=== PATIENT | female | born 2005 | race American Indian/Alaskan Native ===

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

== ENCOUNTER 2023-08-08 22:14 | Inpatient (IN) | payer MEDICAID ==
[~2023-08-08] VITALS: Ht 165.1 cm; Wt 52.8 kg
[~2023-08-08 22:14] MED LIST changes: +ARIP400S3 IM; +BROM5CAP3 PO; +LITH300C PO; -NO HOME MEDS; +OLAN20TA34 PO; -PHEN51CR24 RC
[2023-08-09 00:35] LABS: URINE AMPHETAMINE SCREEN POSITIVE (Neg); URINE BARBITUATE SCREEN NEGATIVE (Neg); URINE BENZODIAZEPINES SCREEN NEGATIVE (Neg); URINE CANNABINOID SCREEN POSITIVE (Neg); URINE COCAINE SCREEN NEGATIVE (Neg); URINE METHADONE SCREEN NEGATIVE (Neg); URINE OPIATE SCREEN NEGATIVE (Neg); URINE PHENCYCLIDINE SCREEN NEGATIVE (Neg)
[2023-08-09 01:16] LABS: URINE HCG NEGATIVE (NEG)
[2023-08-09 01:25] LABS: MEAN PLATELET VOLUME 8.6 FL (7.4-10.4); WHITE BLOOD COUNT 11.2 X10'3 (4.5-11.0)
[2023-08-09 01:27] LABS: BASOPHILS # (AUTO) 0.1 X10'3 (0-0.2); BASOPHILS % (AUTO) 0.6 % (0-1); EOSINOPHILS # (AUTO) 0.1 X10'3 (0-0.9); EOSINOPHILS % (AUTO) 0.5 % (0-6); HEMATOCRIT 36.6 % (35.0-45.0); LYMPHOCYTES # (AUTO) 2.1 X10'3 (1.1-4.8); LYMPHOCYTES % (AUTO) 19.1 % (21-51); MEAN CORPUSCULAR HEMOGLOBIN 31.4 PG (27.0-31.0); MEAN CORPUSCULAR HGB CONC 32.7 g/dL (33.0-36.5); MEAN CORPUSCULAR VOLUME 95.9 FL (78-98); MONOCYTES % (AUTO) 9.1 % (2-12); NEUTROPHILS # (AUTO) 7.9 X10'3 (1.8-7.7); NEUTROPHILS % (AUTO) 70.7 % (42-75); PLATELET COUNT 235 X10'3 (140-440); RED BLOOD COUNT 3.82 X10'6 (4.20-5.60)
[2023-08-09 01:41] LABS: ALANINE AMINOTRANSFERASE 39 U/L (12-78); ALBUMIN/GLOBULIN RATIO 1.1 (1.1-1.5); ALKALINE PHOSPHATASE 60 IU/L (20-180); ANION GAP 11 (8-16); ASPARTATE AMINO TRANSFERASE 30 U/L (10-37); BILIRUBIN,TOTAL 1.1 MG/DL (0.1-1.0); BLOOD UREA NITROGEN 28 MG/DL (7-18); BUN/CREATININE RATIO 33.7 (10.0-20.0); CALCIUM 9.2 MG/DL (8.5-10.1); CHLORIDE 100 MMOL/L (99-107); CREATININE 0.83 MG/DL (0.40-0.90); GLUCOSE 87 MG/DL (70-104); POTASSIUM 3.4 MMOL/L (3.5-5.1); SODIUM 134 MMOL/L (135-145); TOTAL CARBON DIOXIDE 22.8 MMOL/L (24-32); TOTAL PROTEIN 7.7 G/DL (6.4-8.2); eCRCL 79 ML/MIN; eGFR 88 ML/MIN
[2023-08-09 01:49] LABS: ETHANOL < 10 MG/DL (<10)
--- NOTE | 2023-08-09 02:08 | NUR ---
The patient was moved to Fast track. She is very dirty and disheveled. She is mumbling her replies and is a poor historian. She did state she is hearing voices telling her "to accept the love" She is oriented to year. She has not been taking any psychiatric medications.
[2023-08-09] MEDS ORDERED: NO HOME MEDS (02:19)
--- NOTE | 2023-08-09 02:41 | NUR ---
The patient appears to be sleeping
[2023-08-09 02:55] LABS: THYROID STIMULATING HORMONE 0.21 ulU/ml (0.34-4.50)
--- NOTE | 2023-08-09 04:18 | NUR ---
PACKET SENT TO [facility]
--- NOTE | 2023-08-09 05:08 | NUR ---
The patient appears to be sleeping
--- NOTE | 2023-08-09 06:38 | NUR ---
Pt. moved into bed 21 from fast track. Pt sitting up eating anibal crackers with milk. No acute distress noted.
--- NOTE | 2023-08-09 07:02 | NUR ---
PT REFUSED VITALS @0700. PT IS HIDING UNDER HER COVERS COMPLETELY. I GENTLY PLACED MY HAND ON HER SHOULDER TO ASK IF I COULD OBTAIN HER VITAL SIGNS AND PATEINT SAID NO AND SHOOK/ TOSSED HER WHOLE BODY AROUND ACTING OUT SO I WOULD NOT TOUCH HER. ADVISED PT THAT I WILL TRY AGAIN LATER BECAUSE WE WILL NEED TO CHECK TO MAKE SURE SHE IS HEALTHY. PT DID NOT RESPOND AND STAYED UNDER BLANKET
--- NOTE | 2023-08-09 09:27 | NUR ---
[facility] at bedside evaluating pt.
--- NOTE | 2023-08-09 09:30 | NUR ---
Hold upheld for 5150 for GD.
--- NOTE | 2023-08-09 09:41 | NUR ---
Patient currently sitting up in bed looking around the room talking to herself and crying. When I approached patient to ask if there was anything I could get her or if she wanted to talk patient states she would like "something" to clean herself up with. Patient also advised that she is sad about "her city" and then asks, "What happened to my city, to [facility]?" She goes on to say, "It never use to be like this. It is so bad out here." I advised patient that I can get her a shower cap, and other supplies so she can clean herself up. She was given the shower cap, bathing wipes, deodorant, toothbrush & paste, mouth, and hair brush. When giving pt her supplies she asks to use the bathroom so she could see herself in the mirror- I advised we do not have any and she was very hesitant then asks, "Who took the mirrors from me?" I let pt know we never had mirrors here for anyone. Pt states she will stay in her room. She is currently applying the shower cap w/ no help per her request and now will use wet wipes to clean herself up more so.
--- NOTE | 2023-08-09 10:00 | NUR ---
1:1 done at bedside, pt. tearful, making nonsensical and disorganized statements. Pt offered toiletry items and is cleaning herself up at this time. Pt. denies SI. It appears she is having VH, pt continuously looking up at the ceiling in a panic.
--- NOTE | 2023-08-09 11:03 | NUR ---
Pt. looking through a magazine talking outloud to herself. No acute distress noted.
--- NOTE | 2023-08-09 13:10 | NUR ---
Pt has been accepted to [facility], pt will be transferred at the appropriate time.
--- NOTE | 2023-08-09 13:58 | NUR ---
Pt. resting with blanket over her face. Noted rise and fall of chest.
--- NOTE | 2023-08-09 14:59 | NUR ---
Pt eating lunch, moaning loudly, "I need these braces off, Christina had them since I was 15, my parents are pieces of shit." Pt. states each bite she takes hurts.
--- NOTE | 2023-08-09 16:36 | NUR ---
Pt talking to her magazine. Pt has been talking to herself sitting on her bed.
--- NOTE | 2023-08-09 17:18 | NUR ---
Pt. sister Annie visiting at bedside.
--- NOTE | 2023-08-09 17:46 | NUR ---
ERIN - SISTER [phone]
--- NOTE | 2023-08-09 19:35 | NUR ---
The patient can be heard talking to people who are not there. She denies suicidal thoughts but stated, "diego diego! I have so many thoughts. Like a storm up there" She denies being suicidal. She has braces but has not had any care by an identification and records commander for over a year. She is having trouble eating. When asked where she has been living she replied "[place] everywhere" She denies being depressed.
--- NOTE | 2023-08-09 21:15 | NUR ---
The patient appears to be sleeping
[2023-08-09] MEDS ORDERED: loperamide 2mg capsule PO PRN (22:10)
[2023-08-09] MEDS ORDERED: acetaminophen 325mg tablet PO PRN (22:10)
[2023-08-09] MEDS ORDERED: magnesium hydroxide 30ml (MOM) UD suspension PO PRN (22:10)
[2023-08-09] MEDS ORDERED: mag hydrox/Alum hydrox/simeth 30ml oral suspension PO PRN (22:10)
[2023-08-09 22:52] VITALS: BP 109/76; PULSE 111; RESP 16; TEMP 98.9; O2SAT 98
[2023-08-09] MEDS: acetaminophen 325mg tablet PO PRN (23:15)
[2023-08-10 00:38] VITALS: RESP 16; O2SAT 97
--- NOTE | 2023-08-10 02:58 | NUR ---
Admit Note: Pt transferred from [facility] to [facility] on 5150 for [place] Disability. Pt presented to the ED with signs and symptoms of psychosis including disorganized thoughts and feeling that she lost herself. Pt is unable to report a viable plan for food, clothing and retirement. She is observed responding to internal stimuli speaking and making non-sensical or delusional statements. Pt is calm and cooperative with skin check and admission. Rash identified on left side of LE. Red and blotchy.
[2023-08-10] MEDS: acetaminophen 325mg tablet PO PRN (06:47)
[2023-08-10 07:00] VITALS: RESP 16; O2SAT 100
[2023-08-10 08:00] VITALS: BP 119/86; PULSE 106; RESP 16; TEMP 98.8; O2SAT 100
[2023-08-10 08:21] LABS: HEMOGLOBIN A1C 4.8 % (4.5-6.2)
[2023-08-10 08:30] LABS: CHOL/HDL RATIO 2.7 (0.00-4.99); CHOLESTEROL 120 MG/DL (0-200); HDL CHOLESTEROL 44 MG/DL (35-60); LDL CHOLESTEROL 57 MG/DL (50-100); TRIGLYCERIDES 53 MG/DL (20-135)
[2023-08-10] MEDS: nicotine 21mg patch - 24 hr TD SCH (08:59)
--- NOTE | 2023-08-10 09:51 | NUR ---
Malnutrition Consult: Pt admit DX acute psychosis s/p meth and cannabis use per EMR. BMI 16.9 via 46.1kg standing scaled wt this admit and pt reports 14-23 pounds wt loss per RN Malnutrition Screen. Pt prior scaled wt hx 01/02/22 47.4kg chair scale ER visit in EMR stable wt hx. RD d/w RN pt nutrition status, RN confirms pt small stature but appears appropriate. Pt likely maintains underweight status at baseline and given normal strength, no edema/wounds, and PO 75-100% first two regular diet meals does not meet malnutrition criteria at this time. Will monitor for further malnutrition criteria and nutrition intervention needs this admit. Addendum: 08/10/23 at [address] Amended: Links added.
[2023-08-10] MEDS ORDERED: FLU VACC QS2023-24(6MOS UP)/PF 60 MCG/0.5 ML SYRINGE IM ONE (10:00)
--- NOTE | 2023-08-10 11:28 | NUR ---
Pt. c/o generalized tooth pain r/t her braces, this was endorsed to Dr. Hernandez and received an order for Anbesol. Will continue to monitor pt. closely.
[2023-08-10] MEDS ORDERED: benzocaine (Anbesol) 12ml bottle MM PRN (11:30)
[2023-08-10] MEDS ORDERED: magnesium 4gm in 100ml NS 100 ML IV PRN (17:10)
[2023-08-10] MEDS ORDERED: potassium Cl 20 mEq SR tablet PO PRN ×2 (17:10)
[2023-08-10] MEDS ORDERED: magnesium 2GM in 50ml NS 50 ML IV PRN (17:10)
[2023-08-10] MEDS ORDERED: potassium Cl 40MEQ/1/2NS 520ml 520 ML IV PRN (17:10)
[2023-08-10] MEDS ORDERED: magnesium Cl slow-release 64mg tablet PO PRN (17:10)
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
[2023-08-10 19:00] VITALS: RESP 18; O2SAT 97
[2023-08-10 19:34] VITALS: BP 122/85; PULSE 97; RESP 18; TEMP 98.8; O2SAT 100
[2023-08-10] MEDS ORDERED: K and/or MAG REPLACEMENT MC SCH (20:00)
--- NOTE | 2023-08-11 03:31 | NUR ---
Nursing Progress Note: Problem: Pt. was transferred from the ER to [facility] on 5150 for Grave Disability. Pt presented to the ED with signs and symptoms of psychosis including disorganized thoughts and feeling that she lost herself. Pt is unable to report a viable plan for food, clothing and retirement. She is observed responding to internal stimuli speaking and making non-sensical or delusional statements. Interventions : Introduced self and established rapport, maintained a safe and supportive environment, attempted to orient to reality, provided clear and simple instructions, monitored behaviors and provided intervention as needed, and maintained Q 15min safety checks. Response: This nurse resumed care for patient at 1830. Patient observed using headphones and wandering halls. During 1:1, patient denied all symptoms but pain. Patient is c/o tooth pain, she states she can hardly eat with the pain. Patient receiving Tylenol to aid with the tooth pain previous shift. During med pass patient got angry because they have me as allergic to bananas, caffeine, and lactose intolerant. She continues with why are they doing this to me? Im leaving here as soon as I can, I need to be around people who care about me like my man. This nurse asked patient if she was allergic to these things and she said no. Patient was administered potassium 20 MEQ, her lab was 3.4. Patient received shower this evening. Patient participated in HS snack. Patient currently in bed with eyes closed. No obvious issues to note. Plan: Pt. requires interruption of current crisis, medication adjustments, and a safe and supportive environment.
[2023-08-11 07:00] VITALS: RESP 16; O2SAT 99
[2023-08-11 08:00] VITALS: BP 132/88; PULSE 110; RESP 16; TEMP 98.4; O2SAT 99
[2023-08-11] MEDS: nicotine 21mg patch - 24 hr TD SCH (08:23)
[2023-08-11 11:49] LABS: FREE T4 (FREE THYROXINE) 1.19 NG/DL (0.73-1.40); MAGNESIUM 2.1 MG/DL (1.5-2.4)
--- NOTE | 2023-08-11 14:06 | NUR ---
Nursing Progress Note: Problem : Pt. was transferred from the ER to [facility] on 5150 for Grave Disability. Pt presented to the ED with signs and symptoms of psychosis including disorganized thoughts and feeling that she lost herself. Pt is unable to report a viable plan for food, clothing and fdc. She is observed responding to internal stimuli speaking and making non-sensical or delusional statements. Interventions : 1:1 assessment, establishment of rapport, therapeutic communication, active listening, medication administration/education/monitoring, behavior monitoring and intervention as needed; provided distraction, direction, positive reinforcement, and maintained Q 15min safety checks. Response : Pt showered before breakfast. Pt denied dental pain today. Pt had no morning medications except a nicotine patch. When asked pt's birthday, she gave it and then added that it's the same as Demarcus Zambrano's birthday and it is. Pt was observed responding to internal stimuli in the dining room during breakfast. Pt was rapidly talking to herself, gesturing, and moving her body in odd ways. Pt is restless, she wanders the unit and listens to radio headphones. Pt was observed arranging and then rearranging the items on her night stand repeatedly. Also observed pt in the community/dining room arranging and then rearranging the art supplies. Pt's K today was 4.0 and her mag was 2.1 WNL. Potassium/mag protocol was D/c'd. Pt's Free T4 was 1.19 WNL. Plan : Pt. requires interruption of current crisis, medication adjustments, and a safe and supportive environment. Addendum: 08/11/23 at 1452 by Stephanie Davidson RN (Lee) IFEOMA Katherine brought in some braces wax for the pt. She was provided with a strip and the rest was placed in her locker.
[2023-08-11 19:03] VITALS: BP 129/83; PULSE 102; RESP 18; TEMP 97.9; O2SAT 97
[2023-08-11 19:47] VITALS: RESP 18; O2SAT 97
--- NOTE | 2023-08-11 23:21 | NUR ---
Nursing Progress Note: Problem : Pt. was transferred from the ER to [facility] on 5150 for Grave Disability. Pt presented to the ED with signs and symptoms of psychosis including disorganized thoughts and feeling that she lost herself. Pt is unable to report a viable plan for food, clothing and intermediate. She is observed responding to internal stimuli speaking and making non-sensical or delusional statements. Interventions : 1:1 assessment, establishment of rapport, therapeutic communication, active listening, medication administration/education/monitoring, behavior monitoring and intervention as needed; provided distraction, direction, positive reinforcement, and maintained Q 15min safety checks. Response : Patient pleasant and cooperative with care; no scheduled meds this shift. Patient provided minimal responses during assessment; denied SI, HI, A/VH and added she was "brought in by mistake." Patient was social with peers and participated in HS snack. She was observed reading prior to bed; she randomly popped up pacing the camacho quickly and laid back down. She is observed sleeping and does not appear to be having difficulty. Plan : Pt. requires interruption of current crisis, medication adjustments, and a safe and supportive environment.
--- NOTE | 2023-08-12 06:30 | NUR ---
Psychotic Episode: Pt. awoke and began yelling out in a tormented manner stating, "I don't want to think, I want to be a monk!" This jingle writer attempted to provide active listening and positive encouragement to pt., however she was resistant. This jingle writer also encouraged pt. to quiet her voice as others were still seeping, pt. proceeded to put headphones on, rip off her name band, and yelled out, "I don't need sleep!" She then began pacing the hallway rapidly in a restless manner, making disorganized utterances at times, and flailing her body rapidly in a bizarre and erratic manner. She did not respond to redirection, however behaviors did appear to increase when others were present, and there is possibly an attention-seeking element to these behaviors. Pt. also appears to be responding aloud to internal stimuli as evidenced by whispering agitatedly in a non-sense manner and staring intently at objects that are not present. Pt. is labile, crying at intervals and then becoming agitated. She is observed to be approaching pictures and random signs in the hallway and praying or attempting to communicate with them in some way. Pt. cries out, "It's scary, I don't want the children to be afraid!" She appears able to be comforted by her peers, and is later observed to be interacting appropriately with them, however does speak in a loud voice at times requiring redirection with effectiveness.
[2023-08-12 07:00] VITALS: RESP 16; O2SAT 99
[2023-08-12 08:00] VITALS: BP 129/77; PULSE 100; RESP 16; O2SAT 99
[2023-08-12] MEDS: nicotine 21mg patch - 24 hr TD SCH (08:57)
--- NOTE | 2023-08-12 10:52 | NUR ---
Initial: Pt admit for acute psychosis. Currently on a regular diet and eating well, documented with average 94% PO intake of all meals since admit meeting estimated nutrient needs. LBM 08/11 per EMR. No nutrition intervention warranted at this time. Will continue to follow and make recommendations as appropriate. Recommendations: 1) Continue regular diet 2) Bowel care PRN 3) Weekly scaled weights Addendum: 08/12/23 at [address] Amended: Links added.
--- NOTE | 2023-08-12 13:53 | NUR ---
CASE MANAGEMENT Put a referral in to the [facility]. They may be able to come out tomorrow to interview Pt. They will confirm later today. Lashawn Woods LCSW
--- NOTE | 2023-08-12 15:57 | NUR ---
Nursing progress note: Problem: Pt. was transferred from the ER to [facility] on 5150 for Grave Disability. Pt presented to the ED with signs and symptoms of psychosis including disorganized thoughts and feeling that she lost herself. Pt is unable to report a viable plan for food, clothing and alf. She is observed responding to internal stimuli speaking and making nonsensical or delusional statements. Response: Assumed care of pt. at 1100. She was up on the unit engaging with peers and listening to music. Later went to group and was watching T.V. Asked her how she is feeling she states, great, always. Asked her if she had a discharge plan, she said, Suzie ([facility]). Asked her if she has been interviewed for the CR, she said, Not yet, 1-2 days. Asked if she has any other DC plan incase [facility] does not work out she states, No, the referral was sent. Asked about HI/SI, she states, No never. Asked her about A/V/H, she states, No, never. While watching a movie she is talking to herself stating, There you go again, I told you not to be dumb. Bx suggests that AH are present. She is very concrete and matter of fact when talking with her. She is minimally communicative but friendly on approach. -Appearance: casually groomed in green scrubs. -Eye contact: good -Mood: calm -Affect: constricted -Speech: WNL but minimal -Thought Process: concrete matter of fact -Thought content: focused on going to [facility] -A/V/H: Bx suggests that AH may be present. -SI/HI: denies -ADLs: independent -Insight: poor -Judgement: poor Plan: Cont. to require a safe and structured environment for further stabilization. Current symptom impair pt.s ability to formulate a safe discharge plan or state how she will provide for herself outside of the facility. If discharged at this time she could be a risk for safety and re-hospitalization.
[2023-08-12 19:25] VITALS: BP_SYST 100; PULSE 93; RESP 16; TEMP 98.7; O2SAT 100
[2023-08-12 19:31] VITALS: RESP 16
[2023-08-12] MEDS: OLANZapine 2.5MG tablet PO SCH ×2 (20:28→20:32)
--- NOTE | 2023-08-12 23:19 | NUR ---
Nursing Progress Note: The patient was up on the unit the entire evening. At Change of shift she was pacing up and down with the head phones on but she did agree to go to her room for the evening assessment. The patient has very little to no insight into her illness. She is aware that there is a plan for her to go to the [facility] but she reports that she is only going to be there temporarily. She stated that after the 30 day [facility] program she is going to be with her significant other, Vitaliy Toussaint and she will be adopting his son. 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 Her mood was elevated but also labile. She denied hearing voices but she was very loud in the patient dining room while other patient's were trying to watch TV. She was gesturing and talking to someone who was not there. She was offered the Zyprexa and she became very indignant and adamantly refused the medication or need for any medications.
[2023-08-13 07:00] VITALS: RESP 16; O2SAT 100
[2023-08-13 07:31] VITALS: BP 116/65; PULSE 99; RESP 16; TEMP 97.6; O2SAT 100
[2023-08-13] MEDS: nicotine 21mg patch - 24 hr TD SCH (08:25)
--- NOTE | 2023-08-13 16:19 | NUR ---
Nursing Progress Note: Problem : Pt. was transferred from the ER to [facility] on 5150 for Grave Disability. Pt presented to the ED with signs and symptoms of psychosis including disorganized thoughts and feeling that she lost herself. Pt is unable to report a viable plan for food, clothing and custodial. She is observed responding to internal stimuli speaking and making non-sensical or delusional statements. Interventions : Maintained a safe and supportive environment, attempted to orient to reality, provided clear and simple instructions, monitored behaviors and provided intervention as needed, provided active listening and positive encouragement, and maintained Q 15min safety checks. Response : Pt. awoke early and again was observed to be pacing in the hallway making bizarre body movements and responding aloud to internal stimuli. Pt. yelled out, "Leave me alone spirit!" This news writer attempted to reorient pt. and questioned her regarding any needs, however she was again resistant and became agitated walking away yelling out, "Never!" Pt. continued to pace the hallway in a restless manner, making disorganized utterances at times, and flailing her body in a bizarre and erratic manner as she had done previously. She approached others making disorganized and tangental statements, "Police had to come to my house last night," she holds up a deck of cards, "Here's my baby right here!" Pt. appears to be particularly preoccupied with the hallway mirror this morning and is observed to be talking to it, pointing, and laughing.Pt. again is resistant to redirection from staff, however her behaviors do consistently appear to increase when others are present suggesting the possibly of an attention-seeking element. Again, pt. appeared to be able to able to pull herself out of her psychosis and was a short time later observed to be interacting appropriately with her peers. However, she continues to make disorganized statements and speak in a very loud voice at times requiring redirection. Pt. attended Group this shift. Pt. remained up interacting appropriately with others during the shift, however remains disorganized and is labile at intervals. At approximately 1600, pt. became agitated and was yelling aloud at internal stimuli in the Group Room. She was redirected back to her room, however continued to be agitated. Pt. yelled out, "Leave me alone you old hag!" When questioned by staff regarding who she is talking to, pt. stated, "My [id number]!" She requested to take a shower, "Before I freak out!" Will continue to monitor closely. Plan : Pt. requires interruption of current crisis, medication adjustments, and a safe and supportive environment. Addendum: 08/13/23 at 1751 by Joycelyn Muhammad RN Pt. refused to turn off the water and come out of the shower r/t responding to internal stimuli. She verbalized seeing and talking to her "[id number]." Pt. remained agitated and yelled out, "Leave me alone you f...ing old hag! I don't even know your son!" Staff attempted to re-orient pt. to reality without success. Pt. required intervention from staff in to get her out of the shower and help her to dress as she was unable to do so independently. Pt. also had torn up a book and spread the pages from it out all over the shower floor. She appears to be unable to independently care for herself. Pt. was finally redirected back to her room, will continue to monitor closely.
[2023-08-13 19:00] VITALS: BP 116/80; PULSE 96; RESP 14; TEMP 98.5; O2SAT 100; O2SAT 96
[2023-08-13] MEDS: OLANZapine 2.5MG tablet PO SCH (20:21)
[2023-08-13] MEDS ORDERED: OLANZapine **IM** 10 mg inj. IM ONE (20:47)
[2023-08-13] MEDS ORDERED: diphenhydrAMINE 50 mg/ml inj ONE (20:48)
--- NOTE | 2023-08-13 23:37 | NUR ---
Nursing Progress Note: Problem : Pt. was transferred from the ER to [facility] on 5150 for Grave Disability. Pt presented to the ED with signs and symptoms of psychosis including disorganized thoughts and feeling that she lost herself. Pt is unable to report a viable plan for food, clothing and assisted. She is observed responding to internal stimuli speaking and making non-sensical or delusional statements. Interventions: Attempted to engage with the patient from the beginning of the shift in an attempt to de-escalate her increasing agitation and lability. Discussed the importance of taking medications to be successful at the [facility] She was made aware of what was ordered for her. When that completely and utterly failed numerous staff attempted to redirect her from disruptive behaviors. Discussed plan of care with the unit staff and she was under increased observation. When she was seen screaming in the dining room punching chairs and standing up on the chairs security was called. The toy trains and accessories salesperson provider was made aware of the behaviors and orders were given for IM medications for her own safety. IM medications given and the patient had to be briefly placed in the quiet room but then immediately in restraints as she was pounding very hard on the class of the door. Response: The patient was found in the dining room crying, then yelling and swearing and talking to someone who was not there. She did agree to go to her room for one to one but she was very easily agitated. She adamantly refused the medications that were ordered for her. She has no insight what so ever and she is not able to verbalize a realistic plan for food, assisted or clothing. She is responding to voices who she believes in [facility] and she plans to go to [place] to be with him. She claims that he is her significant other. She is very tangential and delusional. She yelled, "I am not taking any medications that I cant smoke marijuana with!" She then began making bizarre statements about her parents, "My parents are serial killers!! Faceless killers! They're running from the FBI and I have to round them up!!!" Plan: The patient is currently on a voluntary hold but she is not engaged in treatment and is disruptive to the milieu. She is refusing medication. She lacks capacity to make sound decisions for discharge or for her care. Continue hospitalization.
--- NOTE | 2023-08-14 04:03 | NUR ---
PHYSICAL RESTRAINT NOTE: At [facility] client was in the main dinning room responding to internal stimuli; talking rapidly, gesturing, and being disruptive. Mehnaz Irving RN attempted to calm and verbally de-escalate client. Attempts to re-direct client to a quieter room, with less stimulation, failed. Oral medications for anxiety/agitation were offered, but client refused. At 20:45 clients agitation increased when client stood up on the chair, began beating the chair with her fist, jumping up and down on the chair, and yelling. DEDE Altamirano was notified and orders for emergency medications (50 mg Diphenhydramine IM and 10 mg Zyprexa IM) were obtained. Security was notified and two guards responded to the call. Mehnaz Irving RN, Mundo Wahl CNA, Kendra Bernal LVN, Sania Estrada LVN and Wendy Harding escorted client to the seclusion room and applied restraints. John Forte RN was notified. Client fell asleep and was released from restraints at 21:13. Addendum: 08/14/23 at 2249 by Sima Means RN TIME: 20:45 Clients agitation increased. Jumping on chair, striking chair with fists. 20:53 Client placed in Seclusion Room. Began pounding on window with fists. PRN meds administered. 20:[address] in 4 point restraints. 21:13 Four point restraints removed. Released from Seclusion.
--- NOTE | 2023-08-14 04:37 | NUR ---
S/R Initiation (Y=yes; N=no) Date Seclusion/Behavioral Restraint Episode Began: 08/13/2023 Time Seclusion/Behavioral Restraint Episode Began: 20:53 Type of Restraint(Document Y for the type utilized) mechanical-4 point: Yes physical hold: Yes seclusion: Yes Behavior Necessitating Behavioral Restraint/Seclusion(Document Y for DTS and/or DTO). Danger to self: Yes Danger to others: Yes Alternatives Attempted(Document Y for the alternatives attempted). Decrease stimuli: Yes Diversional activities: No Verbal limit setting: Yes Medication: Yes Reality orientation: Yes Show of support: Yes Problem solving: No De-escalation: Yes Food and fluids: No Increased observation: Yes Other:[] Behavioral Description(narrative of circumstances that led to use of S/R): Yelling, striking chairs with fists, jumping up and down on chair, punching window with fists. Medications Given:(medication name/time/route/location/effectiveness): 10 mg Zyprexa IM, 50 mg Diphenhydramine IM Patient Injuries Y/N(if Y,describe/actions taken/outcome): No Notifications. Provider/Guardian/conservator/Family/other/No one identified by patient to be notified: DEDE Altamirano Education. Education Topic for Seclusion and Behavioral Restraint(must educate each element and Document Y) Hospital policy: Written notification on admission. Reason for seclusion or restraint: Agitation Bx necessary for release: Contract for safety. Calm. Monitoring of patient/behavior: LOS once restraints applied. Individual Taught(Document Y for individuals taught). Patient: Unable at time of incidence. Family: N/A Significant other: N/A Barriers to Learning(Document Y for the barrier(s)identified). None Identified: N/A Emotional Barriers: Yes Inability to Read: No Yarsanism Practices: N/A Cognitive Impairment: N/A Lack of Motivation: N/A Language Barriers: N/A Hearing: N/A Cultural Practice: N/A Other:[] Teaching Method(Document Y for the method(s)utilized). Verbal: N/A Audio/Visual: No Handouts: No Demonstration: No Other:[] Teaching Evaluation(Document Y for which response is applicable to patient). Verbalizes Understanding: N/A Needs Further Teaching: Yes Returns Demonstration: N/A Needs Reinforcement: Yes Needs Practice: N/A Needs Supervision: N/A
--- NOTE | 2023-08-14 04:46 | NUR ---
S/R Discontinuation (Y=yes; N=no) Criteria for Release from Seclusion/Behavioral Restraint. Yes Contracts for Safety: Fell asleep No Longer Danger to Others: No, not a DTO. No Longer Danger to Self: No, not a DTS. Behavioral Description(narrative): Client was standing on chair, jumping up and down on chair, yelling, punching chair, striking seclusion room window Initiation Date of Seclusion/Behavioral Restraint Episode: 08/13/2023 Initiation Time of Seclusion/Behavioral Restraint Episode: 20:53 Discontinuation Date of Seclusion/Behavioral Restraint Episode: 08/13/2023 Discontinuation Time of Seclusion/Behavioral Restraint Episode: 21:13
--- NOTE | 2023-08-14 04:50 | NUR ---
S/R Debrief (Y=yes; N=no) Date of Seclusion/Behavioral Restraint Episode: 08/13/2023 Time of Seclusion/Behavioral Restraint Episode: 20:53 Date of Patient Debrief: Client fell asleep before debrief. Time of Patient Debrief: N/A Patient Attended Debrief (if N then comment why) No Debrief Info in patient words if possible (not necessary if pt. did not attend debrief) What led to the episode: Client psychosis How could patient have handled things differently: Client unable to manage behavior. How could staff have handled things differently: Staff was appropriate and used all tools available. Patient Perception of Episode: N/A due to psychosis. Physical Well-Being- Yes Intact: Yes Altered:[] Comment if altered:[] Psychological/Emotional Comfort-(Y/N) Intact: No Altered: Yes Comment if altered: Client noncompliant with meds. Right to Privacy- (Y/N) Intact: Yes Altered: No Comment if altered:[] Trauma Experienced- No Intact: Altered:[] Comment if altered:[]
[2023-08-14 07:00] VITALS: RESP 16
[2023-08-14] MEDS: nicotine 21mg patch - 24 hr TD SCH (07:57)
[2023-08-14 08:00] VITALS: RESP 14
--- NOTE | 2023-08-14 18:06 | NUR ---
Nursing Progress Note: Teresa Problem : Pt. was transferred from the ER to [facility] on 5150 for Grave Disability. Pt presented to the ED with signs and symptoms of psychosis including disorganized thoughts and feeling that she lost herself. Pt is unable to report a viable plan for food, clothing and halfway. She is observed responding to internal stimuli speaking and making bizarre or delusional statements. Interventions : Maintained a safe and supportive environment, attempted to orient to reality, provided clear and simple instructions, monitored behaviors and provided intervention as needed, provided active listening and positive encouragement, and maintained Q 15min safety checks. Response : Received Pt in seclusion room with door unlocked and sleeping w/o distress at the beginning of this shift. Pt woke and returned to her room and showered this morning. Pt walked halls listening to music and dancing at times. She received her AM Morris. Patch w/o issue. Pt mood elevated at times. She appeared to enjoy playing cards and watching TV with others and was hyper verbal at times mixed with grandiose statements. Pt labile in afternoon. She became agitated in afternoon about wanting to leave and not waiting anymore for the [facility] to come get her. Pt was given phone number to her sister and called her and yelled at her. Pt responded to calm verbal intervention and was able to calm by self. Plan : Pt. requires interruption of current crisis, medication adjustments, and a safe and supportive environment.
[2023-08-14 19:00] VITALS: RESP 14; O2SAT 97
[2023-08-14] MEDS: OLANZapine 2.5MG tablet PO SCH (20:21)
[2023-08-14 20:49] VITALS: BP 119/83; PULSE 121; RESP 14; TEMP 98.5; O2SAT 97
--- NOTE | 2023-08-15 03:35 | NUR ---
Nursing Progress Note: Problem : Pt. was transferred from the ER to [facility] on 5150 for Grave Disability. Pt presented to the ED with signs and symptoms of psychosis including disorganized thoughts and feeling that she lost herself. Pt is unable to report a viable plan for food, clothing and chcf. She is observed responding to internal stimuli speaking and making bizarre or delusional statements. Interventions: Maintained a safe and supportive environment, attempted to orient to reality, provided clear and simple instructions, monitored behaviors and provided intervention as needed, provided active listening and positive encouragement, and maintained Q 15min safety checks. Response: Pt sitting in group room coloring at start of shift. Her face is decorated with stars other symbols drawn on with marking pens. She also outlined her lips and other features with black marker. She was irritable with attempt at conversation and suddenly yelled out is this football game almost over. Several of the male pts responded to her calmly telling her this is a lot of time left. Pt was satisfied and went back to coloring. Pt was cooperative with med pass, took HS Zyprexa refused to remove Nicotine patch I like nightmares. Observed walking in camacho with another female pt, both making bizarre synchronized arm gestures. Plan : Pt. requires interruption of current crisis, medication adjustments, and a safe and supportive environment.
[2023-08-15 07:00] VITALS: RESP 18; O2SAT 100
[2023-08-15 08:00] VITALS: BP 133/90; PULSE 106; RESP 18; TEMP 97.9; O2SAT 100
[2023-08-15] MEDS: nicotine 21mg patch - 24 hr TD SCH (08:23)
--- NOTE | 2023-08-15 14:11 | NUR ---
Nursing Progress Note: Problem : Pt. was transferred from the ER to [facility] on 5150 for Grave Disability. Pt presented to the ED with signs and symptoms of psychosis including disorganized thoughts and feeling that she lost herself. Pt is unable to report a viable plan for food, clothing and skilled nursing. She is observed responding to internal stimuli speaking and making nonsensical or delusional statements. Interventions : 1:1 assessment, establishment of rapport, therapeutic communication, active listening, medication administration/education/monitoring, behavior monitoring and intervention as needed; provided distraction, redirection, positive reinforcement, and maintained Q 15min safety checks. Response : Pt was up for breakfast and cooperative with her nicotine patch. Pt forgot that she still had a patch on from last night. Pt is restless,hyperverbal , and disorganized at times. Pt stated, "I had the best dream...first video consul ever made, all the kids were going raulito raulito over it!" Pt has been drawing on her face with what appeared to be black marker. Pt showered. Later observed pt with thick white stuff all over her face, it appeared to be a toothpaste mask. head piece assembler confirmed that she had asked for some toothpaste earlier. Pt later washed it off. Pt hung out in the rec room socializing with peers and watching TV for awhile. Pt denied SI/HI/AH/VH. Plan : Pt. requires interruption of current crisis, medication adjustments, and a safe and supportive environment.
[2023-08-15 19:00] VITALS: RESP 18; O2SAT 98
[2023-08-15 20:00] VITALS: BP 123/80; PULSE 103; RESP 18; TEMP 97; O2SAT 98
[2023-08-15] MEDS: OLANZapine 2.5MG tablet PO SCH (20:07)
--- NOTE | 2023-08-16 04:06 | NUR ---
Nursing Progress Note: Problem: Pt. was transferred from the ER to [facility] on 5150 for Grave Disability. Pt presented to the ED with signs and symptoms of psychosis including disorganized thoughts and feeling that she lost herself. Pt is unable to report a viable plan for food, clothing and chcf. She is observed responding to internal stimuli speaking and making nonsensical or delusional statements. Interventions : 1:1 assessment, establishment of rapport, therapeutic communication, active listening, medication administration/education/monitoring, behavior monitoring and intervention as needed; provided distraction, redirection, positive reinforcement, and maintained Q 15min safety checks. Response: Pt received in day room where she was interacting with other peers. Pt appears to have painted her face with toothpaste and markers. Pt is cooperative with 1:1. Pt denies SI/HI/AH/VH. Pt was visible on unit. Interacting appropriately with staff and peers. Pt is medication compliant and took no PRNs. Pt did shower and took off her nicotine patch. Pt washed all the toothpaste and markers off in shower. Pt then went to bed and is lying with her blanket covering her face/head. Monitor for safety. Plan: Pt. requires interruption of current crisis, medication adjustments, and a safe and supportive environment.
[2023-08-16 07:00] VITALS: RESP 18; O2SAT 96
[2023-08-16 07:25] VITALS: BP 119/80; PULSE 106; RESP 18; TEMP 98; O2SAT 97
[2023-08-16] MEDS: nicotine 21mg patch - 24 hr TD SCH (08:00)
[2023-08-16] MEDS: LORazepam 1 MG tablet PO PRN (14:24)
--- NOTE | 2023-08-16 17:00 | NUR ---
Nursing Progress Note: Teresa Problem : Pt. 5150 for Grave Disability. Pt presented to the ED with signs and symptoms of psychosis including disorganized thoughts and feeling that she lost herself. Pt is unable to report a viable plan for food, clothing and nursing home. She is observed responding to internal stimuli speaking and making nonsensical or delusional statements. [address] Interventions : 1:1 assessment, establishment of rapport, therapeutic communication, active listening, medication administration/education/monitoring, behavior monitoring and intervention as needed; provided distraction, redirection, positive reinforcement, and maintained Q 15min safety checks. Response : Pt. received awake and dancing in the camacho, she presents as labile and crying on the camacho floor. Pt. later yelling out making delusional statements; provider notified. Pt. met with advocate and attended her hearing, shortly after she could be heard yelling, and was found to be labile and yelling at the provider; PRN Ativan administered with good results. Pt. spent time with cohorts today, often dancing wildly in the camacho, she presents as irritable and internally preoccupied. She denies SI, HI and endorses AH stating I love them, its my we need my she also endorses VH stating I see them with my third eye, the government put fluoride in there Pt. presents with poor fair hygiene, poorly groomed, and is wearing scrubs. Plan : Pt. requires interruption of current crisis, medication adjustments, and a safe and supportive environment.
[2023-08-16 19:00] VITALS: RESP 16; O2SAT 98
[2023-08-16 19:35] VITALS: BP 107/58; PULSE 84; RESP 16; TEMP 98.4; O2SAT 98
[2023-08-16] MEDS: olanzapine 10mg tablet PO SCH (21:00)
[2023-08-17] MEDS ORDERED: LORazepam 2 mg/ml vial ONE (00:13)
--- NOTE | 2023-08-17 00:29 | NUR ---
S/R Initiation (Y=yes; N=no)Y Date Seclusion/Behavioral Restraint Episode Began: 08/17/23 Time Seclusion/Behavioral Restraint Episode Began: 0015 Type of Restraint(Document Y for the type utilized)na mechanical-4 point:na physical hold: escort hold seclusion: y Behavior Necessitating Behavioral Restraint/Seclusion(Document Y for DTS and/or DTO). y Danger to self: The patient was highly manic. refusing redirection and PRN medications began jumping on her bed Danger to others: na Alternatives Attempted(Document Y for the alternatives attempted) Y Decrease stimuli: Y Diversional activities: Y Verbal limit setting:Y Medication:Y Reality orientation: Y Show of support:Y Problem solving: Y De-escalation: Y Food and fluids: water offered Increased observation: Y Other:[] Behavioral Description(narrative of circumstances that led to use of S/R): The patient dancing around in the hallway. Held her foot up to the exit door as if she was going to kick it and then went in to her room and began putting toothpaste on her face. She then began jumping up and down on the bed and absolutely refused to stop. She was attempting to goad security into a physical confrontation. She was fairly cooperative with ambulating to the observation room and with staff on either side of her. She then sat on the bed and when told she was getting some IM ativan she put her sleeve up for staff to administer the injection. Medications Given:(medication name/time/route/location/effectiveness): Ativan IM2mg Patient Injuries Y/N(if Y,describe/actions taken/outcome): N Notifications. Provider/Guardian/conservator/Family/other/No one identified by patient to be notified: Keon Redd PA, John Forte RN media director Education Topic for Seclusion and Behavioral Restraint(must educate each element and Document Y) Hospital policy:y Reason for seclusion or restraint:y Bx necessary for release:y Monitoring of patient/behavior:y Individual Taught(Document Y for individuals taught). Patient:y Family:n Significant other: na Barriers to Learning(Document Y for the barrier(s)identified). Y None Identified: NA Emotional Barriers: acute mk Inability to Read: NA Adventist Practices: NA Cognitive Impairment: Y Lack of Motivation: Y Language Barriers: N Hearing: N Cultural Practice: N Other: N Teaching Method(Document Y for the method(s)utilized). Verbal: Y Audio/Visual: N Handouts: N Demonstration: N Other: NA Teaching Evaluation(Document Y for which response is applicable to patient). Verbalizes Understanding: N Needs Further Teaching: Y Returns Demonstration: N Needs Reinforcement:Y Needs Practice: NA Needs Supervision: Y
--- NOTE | 2023-08-17 00:43 | NUR ---
MH S/R Debrief (Y=yes; N=no) Date of Seclusion/Behavioral Restraint Episode: 08/17/23 Time of Seclusion/Behavioral Restraint Episode: 14 Date of Patient Debrief: NA Time of Patient Debrief: NA Patient Attended Debrief (if N then comment why) N patient sleeping after IM ativan Debrief Info in patient words if possible (not necessary if pt. did not attend debrief) What led to the episode: Dayna and delusions How could patient have handled things differently: by taking the medications PO that were offered How could staff have handled things differently: NA Patient Perception of Episode: Patient has no insight 2nd to delusions and manic symptoms Physical Well-Being-(Y/N)Y Intact: Y Altered:Y Comment if altered: Manic, delusional, psychotic Psychological/Emotional Comfort-(Y/N) Intact:N Altered:Y Comment if altered: Manic Right to Privacy- (Y/N) Intact:y Altered: N Comment if altered:[] Trauma Experienced- (Y/N) Intact:[]Y Altered:[]N Comment if altered:[]
--- NOTE | 2023-08-17 01:02 | NUR ---
S/R Discontinuation (Y=yes; N=no) Criteria for Release from Seclusion/Behavioral Restraint.(Y/N)Y Contracts for Safety: na No Longer Danger to Others:na No Longer Danger to Self: y Behavioral Description(narrative): patient sleeping Initiation Date of Seclusion/Behavioral Restraint Episode: 08/17/23 Initiation Time of Seclusion/Behavioral Restraint Episode: 08/17/23 Discontinuation Date of Seclusion/Behavioral Restraint Episode: 08/17/23 Discontinuation Time of Seclusion/Behavioral Restraint Episode: 99
--- NOTE | 2023-08-17 02:13 | NUR ---
Nursing Progress Note: Teresa Problem: Pt. 5150 for Grave Disability. Pt presented to the ED with signs and symptoms of psychosis including disorganized thoughts and feeling that she lost herself. Pt is unable to report a viable plan for food, clothing and senior living. She is observed responding to internal stimuli speaking and making nonsensical or delusional statements. [address]. Interventions : 1:1 assessment, establishment of rapport, therapeutic communication, active listening, medication administration/education/monitoring, behavior monitoring and intervention as needed; provided distraction, redirection, positive reinforcement, and maintained Q 15min safety checks. Response: Pt received in her bed. Pt is sleeping with blanket covering her head. Pt allowed VS to be taken but when verse writer went in to pass medication pt. didnt want to wake up. Senior Clinical Research Scientist tried multiple times, prompting pt. to wake up for her meds. Pt did move her legs up and down making unusual noises. Pt is wearing headphones. Senior Clinical Research Scientist went back about an hour later and pt. still wont wake up for her Zyprexa. Senior Clinical Research Scientist heard her say, DEDE Hutchison informed of refusal. Unable to assess pt., continue to monitor for safety. 0015 pt. started acting out and was escorted to the seclusion room. Seclusion ended at 0100. See note below for R/S. Plan: Pt. requires interruption of current crisis, medication adjustments, and a safe and supportive environment. Addendum: 08/17/23 at 0556 by Nicole Kaye RN Pt got up and left the observation room about 0650. Pt is wobbly and making non sensical statements. "I have blood in my stool. Is that ffrom cancer. My grandaddy had it." Pt started to dance some in the hallway and was redirected back to her room.
[2023-08-17 07:00] VITALS: RESP 14; O2SAT 97
[2023-08-17 07:32] VITALS: BP 116/67; PULSE 100; RESP 14; TEMP 98.6; O2SAT 97
[2023-08-17] MEDS: nicotine 21mg patch - 24 hr TD SCH (08:21)
--- NOTE | 2023-08-17 17:12 | NUR ---
Nursing Progress Note: Teresa Problem : Pt. was transferred from the ER to [facility] on 5150 for Grave Disability. Pt presented to the ED with signs and symptoms of psychosis including disorganized thoughts and feeling that she lost herself. Pt is unable to report a viable plan for food, clothing and halfway. She is observed responding to internal stimuli speaking and making bizarre or delusional statements. Interventions : Maintained a safe and supportive environment, attempted to orient to reality, provided clear and simple instructions, monitored behaviors and provided intervention as needed, provided active listening and positive encouragement, and maintained Q 15min safety checks. Response : Received Pt in hallway with headphones on doing dancing and talking with staff. Pt had written on her face with markers and toothpaste. Pt was cooperative with vitals and returned to her room before breakfast. She wanted her nicotine patch this morning. Pt ate meals well and ate snacks too. Pt cooperative with weekly weight of 49 kg. Pt did a lot of coloring in her room and watched TV and played games with others. She makes bizarre statements that are grandiose at times. Mood is overall labile with irritable and oppositional moments. Pt has little to no insight into why she is hear and denies MH issues and blames others. Plan : Pt. requires interruption of current crisis, medication adjustments, and a safe and supportive environment.
[2023-08-17 19:00] VITALS: RESP 18; O2SAT 99
[2023-08-17 20:00] VITALS: BP 125/84; PULSE 112; RESP 18; TEMP 98.7; O2SAT 99
[2023-08-17] MEDS: LORazepam 1 MG tablet PO PRN (20:13)
[2023-08-17] MEDS: olanzapine 10mg tablet PO SCH (20:13)
--- NOTE | 2023-08-18 04:22 | NUR ---
Nursing Progress Note: Teresa Problem: Pt. 5150 for Grave Disability. Pt presented to the ED with signs and symptoms of psychosis including disorganized thoughts and feeling that she lost herself. Pt is unable to report a viable plan for food, clothing and [facility]. She is observed responding to internal stimuli speaking and making nonsensical or delusional statements. [address]. Interventions : 1:1 assessment, establishment of rapport, therapeutic communication, active listening, medication administration/education/monitoring, behavior monitoring and intervention as needed; provided distraction, redirection, positive reinforcement, and maintained Q 15min safety checks. Response: Pt received in the day room. Pt is watching TV and coloring. Pt has marked her face up with colored markers. Pt is dancing around the unit while listening to the headphones. Pts mood is labile. Pt is compliant with her Zyprexa 10mg and took Ativan 1mg with it. Pt has markers, cards and food all over her room and bed. Pt is using coloring as a cooping skill. Pt denies all MH symptoms. Pt clipped her finger nails and toenails. Nicotine patch removed. Monitor for safety. Plan: Pt. requires interruption of current crisis, medication adjustments, and a safe and supportive environment.
[2023-08-18 07:30] VITALS: BP 102/61; PULSE 84; RESP 12; TEMP 98.6; O2SAT 100
[2023-08-18] MEDS: OLANZAPINE 5 MG TABLET PO SCH (08:00)
[2023-08-18] MEDS: nicotine 21mg patch - 24 hr TD SCH (08:00)
--- NOTE | 2023-08-18 09:34 | NUR ---
Reassessment: Per EMR pt with 0% PO intake of dinner 08/16 however with 100% PO intake of all surrounding meals meeting estimated nutrient needs. LBM 08/17 per EMR. No nutrition intervention warranted at this time. Will continue to follow and make recommendations as appropriate. Recommendations: 1) Continue regular diet 2) Bowel care PRN 3) Weekly scaled weights Addendum: 08/18/23 at [address] Amended: Links added.
--- NOTE | 2023-08-18 17:49 | NUR ---
Nursing Progress Note: Problem : Pt. was transferred from the ER to [facility] on 5150 for Grave Disability. Pt presented to the ED with signs and symptoms of psychosis including disorganized thoughts and feeling that she lost herself. Pt is unable to report a viable plan for food, clothing and detention. She is observed responding to internal stimuli speaking and making bizarre or delusional statements. Interventions : Maintained a safe and supportive environment, attempted to orient to reality, provided clear and simple instructions, monitored behaviors and provided intervention as needed, provided active listening and positive encouragement, and maintained Q 15min safety checks. Response : RN received pt. awake and sitting in room listening to headphones. Pt. fell back asleep. Pt. awoke and ate breakfast and took all AM medications and went back to sleep. 1:1 done at bedside, pt. observed ring on this RNs finger and asks, Who are you to? RN informed pt. that this was a personal question, and pt. states, Well you could be to my cousin. Pt. allowed Physical assessment, however, RN asked pt. questions regarding her mood, pt. became agitated yelling, No, no, Im not talking to you anymore!. Later in the AM pt. heard shouting from her toilet. RN asked pt. what was wrong and pt. states, I need more toilet paper!. Pt. observed watching TV and coloring in the afternoon. Pt. observed socializing with peers and putting puzzle together. Plan : Pt. requires interruption of current crisis, medication adjustments, and a safe and supportive environment.
[2023-08-18 19:00] VITALS: BP 116/89; PULSE 116; RESP 18; TEMP 98.7; O2SAT 100
[2023-08-18 20:26] LABS: BILIRUBIN,URINE NEGATIVE (Neg); CLARITY,URINE SLIGHTLY CLOUDY (Clear); COLOR,URINE STRAW (Yellow); GLUCOSE, URINE NEGATIVE (Neg); KETONES,URINE NEGATIVE (Neg); LEUKOCYTE ESTERASE ,URINE NEGATIVE (Neg); NITRITES, URINE POSITIVE (Neg); OCCULT BLOOD,URINE NEGATIVE (Neg); PROTEIN,URINE NEGATIVE (Neg); UROBILINOGEN,URINE 0.2 E.U/dL (0.2-1.0)
[2023-08-18 20:27] LABS: UA COLLECTION TYPE NON-SPECIFIED
[2023-08-18 20:31] LABS: SQUAMOUS EPITHELIAL CELL,UR MODERATE /LPF (FEW); TRANSITIONAL EPI CELLS,URINE FEW /HPF
[2023-08-18 20:33] LABS: BACTERIA,URINE 3+ /HPF (Neg); MUCUS STRANDS NONE SEEN /LPF (Neg); RBC,URINE 0-2 /HPF (0-2)
[2023-08-18] MEDS: olanzapine 10mg tablet PO SCH (20:41)
--- NOTE | 2023-08-19 00:55 | NUR ---
RN PROGRESS NOTE: PROBLEM: Client presented to the ED with signs/symptoms of psychosis including disorganized thoughts and feeling that she lost herself. Pt is unable to report a viable plan for food, clothing and assisted. She is observed responding to internal stimuli, and making delusional statements. INTERVENTIONS: Maintained a safe and supportive environment, attempted to orient to reality, provided clear and simple instructions, monitored behaviors and provided intervention as needed, provided active listening and positive encouragement, and maintained Q 15min safety checks. RESPONSE: Client was very active on the unit. She reported putting several puzzles together, was coloring, watching TV, and talking with others. Her room has many items collected from around the unit, books, art supplies, and pictures hanging on the wall. Client took her PM meds, and later insisted on taking a shower stating several times "I didn't get to take one earlier." Client showered and went to bed. Client fell asleep without difficulty. Mood continues to be labile. PLAN: Pt. requires interruption of current crisis, medication adjustments, and a safe and supportive environment.
[2023-08-19 07:30] VITALS: BP 101/71; PULSE 112; RESP 16; RESP 19; TEMP 98.8; O2SAT 97; O2SAT 99
[2023-08-19] MEDS: OLANZAPINE 5 MG TABLET PO SCH (07:36)
[2023-08-19] MEDS: nicotine 21mg patch - 24 hr TD SCH (07:37)
[2023-08-19 08:00] VITALS: BP 116/83; PULSE 103; RESP 16; TEMP 98.5; O2SAT 99
--- NOTE | 2023-08-19 09:30 | NUR ---
RN paged hospitalist regarding abnormal U/A.
--- NOTE | 2023-08-19 10:29 | NUR ---
RN paged hospitalist a second time regarding abnormal U/A
--- NOTE | 2023-08-19 11:30 | NUR ---
RN spoke with Dr. Sidhu regarding pt.'s abnormal U/A. Since pt. denies any genitourinary symptoms no further action is to be taken.
--- NOTE | 2023-08-19 17:41 | NUR ---
Nursing Progress Note: Problem : Pt. was transferred from the ER to [facility] on 5150 for Grave Disability. Pt presented to the ED with signs and symptoms of psychosis including disorganized thoughts and feeling that she lost herself. Pt is unable to report a viable plan for food, clothing and longterm. She is observed responding to internal stimuli speaking and making bizarre or delusional statements. Interventions : Maintained a safe and supportive environment, attempted to orient to reality, provided clear and simple instructions, monitored behaviors and provided intervention as needed, provided active listening and positive encouragement, and maintained Q 15min safety checks. Response : RN received pt. awake and asking staff for a shower. Pt. showered and sitting in hallway drinking coffee and talking with peers. Pt. greets male peer stating, You look like you slept well last night. Pt. took all medications and ate breakfast in community room. Pt. attended AM group and heard engaging with staff. Pt. observed watching TV in the day room and socializing with peers. Pt. overheard making grandiose statements, saying, Im to a [employer] barista. 1:1 done at bedside, pt. denies SI/HI, A/V hallucinations. Pt. states she is feeling, good today. Pt. observed putting puzzles together with staff. Plan : Pt. requires interruption of current crisis, medication adjustments, and a safe and supportive environment.
[2023-08-19 19:30] VITALS: BP 101/71; PULSE 112; RESP 19; TEMP 98.8; O2SAT 97
[2023-08-19] MEDS: olanzapine 10mg tablet PO SCH (20:15)
--- NOTE | 2023-08-20 04:24 | NUR ---
Nursing Progress Note: Problem : Pt. was transferred from the ER to [facility] on 5150 for Grave Disability. Pt presented to the ED with signs and symptoms of psychosis including disorganized thoughts and feeling that she lost herself. Pt is unable to report a viable plan for food, clothing and nursing home. She is observed responding to internal stimuli speaking and making bizarre or delusional statements. Interventions : Maintained a safe and supportive environment, attempted to orient to reality, provided clear and simple instructions, monitored behaviors and provided intervention as needed, provided active listening and positive encouragement, and maintained Q 15min safety checks. Response : RN received pt. awake and watching TV in community room. Pt. ate snack and took evening medications. Pt. observed coloring in her room. Pt. denies all psych symptoms, states she had a good day and asks this travel writer how his day was. Pt. is social with peers and staff. Plan : Pt. requires interruption of current crisis, medication adjustments, and a safe and supportive environment.
[2023-08-20 07:06] VITALS: RESP 19; O2SAT 97
[2023-08-20] MEDS: nicotine 21mg patch - 24 hr TD SCH (07:21)
[2023-08-20] MEDS: OLANZAPINE 5 MG TABLET PO SCH (07:22)
[2023-08-20 08:00] VITALS: BP 117/73; PULSE 113; RESP 16; TEMP 98.9; O2SAT 99
--- NOTE | 2023-08-20 12:09 | NUR ---
Nursing Progress Note: Problem : Pt. was transferred from the ER to [facility] on 5150 for Grave Disability. Pt presented to the ED with signs and symptoms of psychosis including disorganized thoughts and feeling that she lost herself. Pt is unable to report a viable plan for food, clothing and [facility]. She is observed responding to internal stimuli speaking and making bizarre or delusional statements. Interventions : Maintained a safe and supportive environment, attempted to orient to reality, provided clear and simple instructions, monitored behaviors and provided intervention as needed, provided active listening and positive encouragement, and maintained Q 15min safety checks. Response : Patient was awake at shift change. She was sitting in the hallway with headphones on, shaking her head to the music. Patient greets people as they come in. She reports that she slept good, even though she's already awake. Patient has been putting puzzles together and this sports writer brought her a new, harder one that should take a little longer. She appeared happy and put it aside for later. Patient spends her days outside of her room, usually in the community room watching Tv, playing cards, or just socializing. She reports that she will be going to the [facility] discharge. "I've been there before." Patient made no delusional statements today and doesn't appear to be RIS. Plan : Pt. requires interruption of current crisis, medication adjustments, and a safe and supportive environment.
[2023-08-20 14:50] LABS: BASOPHILS # (AUTO) 0.1 X10'3 (0-0.2); BASOPHILS % (AUTO) 1.1 % (0-1); EOSINOPHILS # (AUTO) 0.3 X10'3 (0-0.9); EOSINOPHILS % (AUTO) 4.2 % (0-6); HEMATOCRIT 34.8 % (35.0-45.0); HEMOGLOBIN 11.8 g/dl (12.0-16.0); LYMPHOCYTES # (AUTO) 2.5 X10'3 (1.1-4.8); LYMPHOCYTES % (AUTO) 31.1 % (21-51); MEAN CORPUSCULAR HEMOGLOBIN 32.1 PG (27.0-31.0); MEAN CORPUSCULAR HGB CONC 34.1 g/dL (33.0-36.5); MEAN CORPUSCULAR VOLUME 94.2 FL (78-98); MEAN PLATELET VOLUME 8.2 FL (7.4-10.4); MONOCYTES # (AUTO) 0.8 X10'3 (0-0.9); MONOCYTES % (AUTO) 9.8 % (2-12); NEUTROPHILS # (AUTO) 4.4 X10'3 (1.8-7.7); NEUTROPHILS % (AUTO) 53.8 % (42-75); PLATELET COUNT 328 X10'3 (140-440); RED BLOOD COUNT 3.69 X10'6 (4.20-5.60); RED CELL DISTRIBUTION WIDTH 13.6 % (11.5-14.5); WHITE BLOOD COUNT 8.2 X10'3 (4.5-11.0)
[2023-08-20 19:00] VITALS: BP 123/81; PULSE 115; RESP 16; TEMP 99.3; O2SAT 97
[2023-08-20] MEDS: olanzapine 10mg tablet PO SCH (21:12)
--- NOTE | 2023-08-21 04:25 | NUR ---
RN PROGRESS NOTE: PROBLEM: Client presented to the ED with signs/symptoms of psychosis including disorganized thoughts and feeling that she lost herself. Pt is unable to report a viable plan for food, clothing and assisted. She is observed responding to internal stimuli, and making delusional statements. INTERVENTIONS: Maintained a safe and supportive environment, attempted to orient to reality, provided clear and simple instructions, monitored behaviors and provided intervention as needed, provided active listening and positive encouragement, and maintained Q 15min safety checks. RESPONSE: Client was socializing on the unit. Clients' mood was upbeat until her roommate made several comments that upset her. Client got into her bed, pulled the blanket over her head, and would not respond to this RN or take her PM meds. Attempts to comfort the client failed. She fell asleep without difficulty. Client had been pleasant and cooperative until the interaction. PLAN: Pt. requires interruption of current crisis, medication adjustments, and a safe and supportive environment.
[2023-08-21 07:00] VITALS: RESP 14; O2SAT 97
[2023-08-21] MEDS: nicotine 21mg patch - 24 hr TD SCH (07:55)
[2023-08-21] MEDS: OLANZAPINE 5 MG TABLET PO SCH (07:55)
[2023-08-21 08:00] VITALS: BP 121/90; PULSE 119; RESP 14; TEMP 98.8; O2SAT 97
[2023-08-21 10:10] LABS: BILIRUBIN,URINE NEGATIVE (Neg); CLARITY,URINE CLEAR (Clear); COLOR,URINE YELLOW (Yellow); GLUCOSE, URINE NEGATIVE (Neg); KETONES,URINE NEGATIVE (Neg); LEUKOCYTE ESTERASE ,URINE NEGATIVE (Neg); NITRITES, URINE NEGATIVE (Neg); OCCULT BLOOD,URINE NEGATIVE (Neg); PROTEIN,URINE NEGATIVE (Neg); UROBILINOGEN,URINE 0.2 E.U/dL (0.2-1.0)
[2023-08-21 10:12] LABS: UA COLLECTION TYPE CLN CATCH MIDSTREAM
--- NOTE | 2023-08-21 12:26 | NUR ---
Nursing Progress Note: Problem : Pt. was transferred from the ER to [facility] on 5150 for Grave Disability. Pt presented to the ED with signs and symptoms of psychosis including disorganized thoughts and feeling that she lost herself. Pt is unable to report a viable plan for food, clothing and penitentiary. She is observed responding to internal stimuli speaking and making bizarre or delusional statements. Interventions : Maintained a safe and supportive environment, attempted to orient to reality, provided clear and simple instructions, monitored behaviors and provided intervention as needed, provided active listening and positive encouragement, and maintained Q 15min safety checks. Response : Patient was awake at change of shift. Patient is social and appears friendly. Patient spent a good amount of time in the Community Room this morning watching T.V. and socializing with peers. Early afternoon patient started screaming in the Community Room. Patient went to her room and started throwing things and yelling. Patient eventually calmed down. Patient appears to need more antipsychotic medication. Patient is leaving to the [facility] on Wednesday? Plan : Pt. requires interruption of current crisis, medication adjustments, and a safe and supportive environment.
[2023-08-21 19:00] VITALS: RESP 16; O2SAT 100
[2023-08-21 20:00] VITALS: BP 109/72; PULSE 107; RESP 16; TEMP 99.3; O2SAT 100
[2023-08-21] MEDS: olanzapine 10mg tablet PO SCH (20:36)
--- NOTE | 2023-08-22 04:58 | NUR ---
Nursing Progress Note: Problem : Pt. was transferred from the ER to [facility] on 5150 for Grave Disability. Pt presented to the ED with signs and symptoms of psychosis including disorganized thoughts and feeling that she lost herself. Pt is unable to report a viable plan for food, clothing and alf. She is observed responding to internal stimuli speaking and making bizarre or delusional statements. Interventions : Maintained a safe and supportive environment, attempted to orient to reality, provided clear and simple instructions, monitored behaviors and provided intervention as needed, provided active listening and positive encouragement, and maintained Q 15min safety checks. Response : Pt was awake at change of shift, walking/roaming the hallways. Interactive with staff and others. Pt spent reasonable amount of time in the community room this evening and socialized well with peers. No witnessed outbursts or disturbances observed for the remaining of night. Pt went straight to her room around 2100, complied with medication administration and slept soundly throughout the night/shift. Plan to D/C to [facility] on Wednesday? Plan : Pt. requires interruption of current crisis, medication adjustments, and a safe and supportive environment.
[2023-08-22 07:00] VITALS: RESP 16; O2SAT 97
[2023-08-22 08:00] VITALS: BP 105/77; PULSE 100; RESP 16; TEMP 98.4; O2SAT 97
[2023-08-22] MEDS: OLANZAPINE 5 MG TABLET PO SCH (08:32)
[2023-08-22] MEDS: nicotine 21mg patch - 24 hr TD SCH (08:32)
[2023-08-22] MEDS: levoFLOXACIN 750MG TABLET PO SCH (11:54)
--- NOTE | 2023-08-22 16:30 | NUR ---
Nursing Progress Note: Problem : Pt. was transferred from the ER to [facility] on 5150 for Grave Disability. Pt presented to the ED with signs and symptoms of psychosis including disorganized thoughts and feeling that she lost herself. Pt is unable to report a viable plan for food, clothing and care home. She is observed responding to internal stimuli speaking and making bizarre or delusional statements. Interventions : Maintained a safe and supportive environment, attempted to orient to reality, provided clear and simple instructions, monitored behaviors and provided intervention as needed, provided active listening and positive encouragement, and maintained Q 15min safety checks. Response : Nurse received pt. awake at change of shift, utilizing the unit headphones walking the halls. Pt. spent a lot of her time in the community room watching the football games with headphones on. Pt continues to have odd behaviors, having random outbursts and dancing and singing as if nobody is in the room with her. Pt. denies all MH symptoms but appears to be responding to internal stimuli at times. Pt. was medication compliant and 1:1 completed at bedside. Pt. is being treated for a UTI with ABT, this nurse clarified these orders with Dr. Reinoso due to pt. newest UA being WNL, would like to continue treatment due to pervious UA being abnormal. Medical doctor saw pt. Pt requesting a ticket to [place], [place]. Pt denies any urinary symptoms, stating, no, you guys are foolish. Pt attended meals in the dining room. Plan : Pt. requires interruption of current crisis, medication adjustments, and a safe and supportive environment. Patient is leaving to the [facility] on Wednesday?
--- NOTE | 2023-08-22 16:32 | NUR ---
Pt showered this shift.
[2023-08-22] MEDS ORDERED: OLANZapine **IM** 10 mg inj. IM ONE (16:59)
[2023-08-22] MEDS ORDERED: diphenhydrAMINE 50 mg/ml inj ONE (16:59)
--- NOTE | 2023-08-22 17:40 | NUR ---
S/R Initiation (Y=yes; N=no) Date Seclusion/Behavioral Restraint Episode Began:08/22/23 Time Seclusion/Behavioral Restraint Episode Began:1700 Type of Restraint(Document Y for the type utilized) mechanical-4 point:y physical hold:y seclusion: Behavior Necessitating Behavioral Restraint/Seclusion(Document Y for DTS and/or DTO). Danger to self:[] Danger to others:[y] Alternatives Attempted(Document Y for the alternatives attempted). Decrease stimuli:[y] Diversional activities:[] Verbal limit setting:[y] Medication:[] Reality orientation:[] Show of support:[y] Problem solving:[] De-escalation:[y] Food and fluids:[] Increased observation:[y] Other:[Attempted to verbally de-escalate pt. Pt. was not redirectable.] Behavioral Description(narrative of circumstances that led to use of S/R):[Pt. was sitting in the community room watching the football game, coloring and utilizing the facility headphones. Pt had requested the football game be turned off, at this time a peer requested to watch the end of the game. At this time Teresa became irrational, yelling at peer, "you're a man baby, your IQ is less than negative two!" Pt. at this time was redirected to go to her room in hopes she could calm down. Pt. then started screaming at staff and kicking her trash can repeatedly. Pt then went to her bathroom door and was slamming it repeatedly while screaming at staff to "get the fuck away from me!" Pt was posturing towards staff. Security was called and pt. was escorted to the seclusion room and placed in mechanical restrains at 1700 and released at 1730. ] Medications Given:(medication name/time/route/location/effectiveness):[ Zyprexa 10mg IM left deltoid at 1708 and Benadryl 50mg IM in right deltoid at 1708. Medication effective, pt resting calming with noted rise and fall of chest. ] Patient Injuries Y/N(if Y,describe/actions taken/outcome):[n] Notifications. Provider/Guardian/conservator/Family/other/No one identified by patient to be notified:[ Pt assessment states did not want anyone notified ] Education. Education Topic for Seclusion and Behavioral Restraint(must educate each element and Document Y) Hospital policy:[y] Reason for seclusion or restraint:[y] Bx necessary for release:[y] Monitoring of patient/behavior:[y] Individual Taught(Document Y for individuals taught). Patient:[y] Family:[] Significant other:[] Barriers to Learning(Document Y for the barrier(s)identified). None Identified:[y] Emotional Barriers:[] Inability to Read:[] L[employer] Practices:[] Cognitive Impairment:[] Lack of Motivation:[] Language Barriers:[] Hearing:[] Cultural Practice:[] Other:] Teaching Method(Document Y for the method(s)utilized). Verbal:[y] Audio/Visual:[] Handouts:[] Demonstration:[] Other:[] Teaching Evaluation(Document Y for which response is applicable to patient). Verbalizes Understanding:[y] Needs Further Teaching:[] Returns Demonstration:[] Needs Reinforcement:[] Needs Practice:[] Needs Supervision:[]
--- NOTE | 2023-08-22 17:59 | NUR ---
S/R Discontinuation (Y=yes; N=no) Criteria for Release from Seclusion/Behavioral Restraint.(Y/N) Contracts for Safety:Yes No Longer Danger to Others:[y] No Longer Danger to Self:[] Behavioral Description(narrative):[Pt. was sitting in the community room watching the football game, coloring and utilizing the facility headphones. Pt had requested the football game be turned off, at this time a peer requested to watch the end of the game. At this time Teresa became irrational, yelling at peer, "you're a man baby, your IQ is less than negative two!" Pt. at this time was redirected to go to her room in hopes she could calm down. Pt. then started screaming at staff and kicking her trash can repeatedly. Pt then went to her bathroom door and was slamming it repeatedly while screaming at staff to "get the fuck away from me!" Pt was posturing towards staff. Security was called and pt. was escorted to the seclusion room and placed in mechanical restrains at 1700. Pt contracted to safety at 1730 and was released from restraints at 1730. Pt sleeping now with rise and fall of chest. ] Initiation Date of Seclusion/Behavioral Restraint Episode:[08/22/23] Initiation Time of Seclusion/Behavioral Restraint Episode:[1700] Discontinuation Date of Seclusion/Behavioral Restraint Episode:[08/22/23] Discontinuation Time of Seclusion/Behavioral Restraint Episode:[1730]
--- NOTE | 2023-08-22 18:05 | NUR ---
S/R Debrief (Y=yes; N=no) Date of Seclusion/Behavioral Restraint Episode:08/22/23 Time of Seclusion/Behavioral Restraint Episode: 1699 Date of Patient Debrief:08/22/23 Time of Patient Debrief:173 Patient Attended Debrief (if N then comment why) y Debrief Info in patient words if possible (not necessary if pt. did not attend debrief) What led to the episode:"I didnt want to watch football anymore" How could patient have handled things differently:[Calmly left the community room and colored in her room. How could staff have handled things differently:[Escalated quickly, staff handled situation correctly. Several verbal attempts to de-escalate the pt. also escorted pt to her room in hopes she would calm down] Patient Perception of Episode:[Does not understand how her behavior was inappropriate. ] Physical Well-Being-(Y/N) Intact:[y] Altered:[n] Comment if altered:[] Psychological/Emotional Comfort-(Y/N) Intact:[y] Altered:[] Comment if altered:[] Right to Privacy- (Y/N) Intact:[y] Altered:[] Comment if altered:[] Trauma Experienced- (Y/N) Intact:[No trauma] Altered:[] Comment if altered:[]
[2023-08-22 19:10] VITALS: RESP 16; O2SAT 100
[2023-08-22] MEDS: olanzapine 10mg tablet PO SCH (20:52)
[2023-08-22 20:58] VITALS: BP 133/91; PULSE 112; RESP 16; TEMP 98.6; O2SAT 100
--- NOTE | 2023-08-23 02:09 | NUR ---
Nursing Progress Note: Problem : Pt. was transferred from the ER to [facility] on 5150 for Grave Disability. Pt presented to the ED with signs and symptoms of psychosis including disorganized thoughts and feeling that she lost herself. Pt is unable to report a viable plan for food, clothing and nursing home. She is observed responding to internal stimuli speaking and making bizarre or delusional statements. Interventions : Maintained a safe and supportive environment, attempted to orient to reality, provided clear and simple instructions, monitored behaviors and provided intervention as needed, provided active listening and positive encouragement, and maintained Q 15min safety checks. Response : Upon arrival to shift noted patient sleeping. Had an episode prior to shift change and was medicated. Slept until woke for HS meds. Was compliant with med pass and gave her a snack. Removed Nicotine patch. Requested shower and got cleaned up. Was pleasant, calm and cooperative tonight. Denies MH s/sx. Good eye contact and appropriate conversation noted. No psychotic behaviors or delusional statements made this shift. Abx continue for UTI. Went to sleep and rested well. Will continue to monitor. Plan : Pt. requires interruption of current crisis, medication adjustments, and a safe and supportive environment. Patient is leaving to the [facility] on Wednesday?
[2023-08-23 07:00] VITALS: RESP 16; O2SAT 96
[2023-08-23] MEDS: OLANZAPINE 5 MG TABLET PO SCH (07:17)
[2023-08-23] MEDS: cloNIDine 0.1 mg tablet PO PRN ×2 (07:17→14:49)
[2023-08-23 08:00] VITALS: BP 134/88; PULSE 115; RESP 18; TEMP 97.1; O2SAT 96
[2023-08-23] MEDS: nicotine 21mg patch - 24 hr TD SCH (08:00)
[2023-08-23] MEDS: levoFLOXACIN 750MG TABLET PO SCH (11:46)
--- NOTE | 2023-08-23 16:12 | NUR ---
Nursing Progress Note: Problem : Pt. was transferred from the ER to [facility] on 5150 for Grave Disability. Pt presented to the ED with signs and symptoms of psychosis including disorganized thoughts and feeling that she lost herself. Pt is unable to report a viable plan for food, clothing and residential. She is observed responding to internal stimuli speaking and making bizarre or delusional statements. Interventions : Maintained a safe and supportive environment, attempted to orient to reality, provided clear and simple instructions, monitored behaviors and provided intervention as needed, provided active listening and positive encouragement, and maintained Q 15min safety checks. Response : Nurse received pt. awake at change of shift, utilizing the facility phone. Pt appeared agitated stating, keep those chemicals out of my brain! Pt was very labile, going from having a logical conversation to bizarre statements. Pt was gradually becoming louder. AM medications administered as well as PRN clonidine at approx. 0720. Pt attended breakfast but did not attend group. Pt seen resting in bed prior to lunch, pt. Pt continues to be treated for a UTI. No urinary symptoms per pt. Pt started to become verbally aggressive towards staff regarding the TV at approx. 1445. Pt wanted to watch [place] but was told this was not appropriate, pt stated, youre treating me like a child you cunt, Im going to kick your ass! Pt encouraged to leave community room and go to her room. Pt exited to the hallway yelling, leave me the fuck alone, dont even look at me. PRN clonidine offered and administered at this time. Pt sitting in rhe room with headphones on coloring. Plan : Pt. requires interruption of current crisis, medication adjustments, and a safe and supportive environment.
[2023-08-23 18:55] VITALS: RESP 16
[2023-08-23 19:32] VITALS: BP 109/74; PULSE 98; RESP 16; TEMP 97.8; O2SAT 100
[2023-08-23] MEDS: olanzapine 10mg tablet PO SCH (19:55)
[2023-08-23 21:15] VITALS: BP 100/62; PULSE 110; O2SAT 97
--- NOTE | 2023-08-24 04:00 | NUR ---
Nursing Progress Note: Problem : Pt. was transferred from the ER to [facility] on 5150 for Grave Disability. Pt presented to the ED with signs and symptoms of psychosis including disorganized thoughts and feeling that she lost herself. Pt is unable to report a viable plan for food, clothing and group home. She is observed responding to internal stimuli speaking and making bizarre or delusional statements. Interventions : Maintained a safe and supportive environment, attempted to orient to reality, provided clear and simple instructions, monitored behaviors and provided intervention as needed, provided active listening and positive encouragement, and maintained Q 15min safety checks. Response : Upon arrival to shift noted patient sitting up in dining room finishing dinner and watching a movie. Pleasant calm and cooperative. Some disorganized delusional statements made. Denies SI, HI, AH or VH. Compliant with HS meds. Removed nicotine patch. Expressed that Clonidine helps with anxiety. Held med r/t low SBP. Patient fell asleep. Appeared to be resting comfortably. Currently sleeping well. Will continue to monitor. Plan : Pt. requires interruption of current crisis, medication adjustments, and a safe and supportive environment.
[2023-08-24 07:00] VITALS: RESP 16; O2SAT 96
[2023-08-24] MEDS: cloNIDine 0.1 mg tablet PO PRN ×2 (07:23→15:14)
[2023-08-24] MEDS: OLANZAPINE 5 MG TABLET PO SCH (07:24)
[2023-08-24] MEDS: nicotine 21mg patch - 24 hr TD SCH (07:24)
[2023-08-24 08:00] VITALS: BP 114/86; PULSE 104; RESP 16; TEMP 98.1; O2SAT 96
[2023-08-24] MEDS: levoFLOXACIN 750MG TABLET PO SCH (11:09)
[2023-08-24 15:06] VITALS: BP 114/66; PULSE 116; RESP 16; TEMP 98; O2SAT 98
--- NOTE | 2023-08-24 17:01 | NUR ---
Nursing Progress Note: Teresa Problem : Pt. was transferred from the ER to [facility] on 5150 for Grave Disability. Pt presented to the ED with signs and symptoms of psychosis including disorganized thoughts and feeling that she lost herself. Pt is unable to report a viable plan for food, clothing and senior care. She is observed responding to internal stimuli speaking and making bizarre or delusional statements. Interventions : Maintained a safe and supportive environment, attempted to orient to reality, provided clear and simple instructions, monitored behaviors and provided intervention as needed, provided active listening and positive encouragement, and maintained Q 15min safety checks. Response: Received pt awake in hallway with toothpaste on her nose, listening to headphones and walking calmly. Pt took medications cooperatively and ate breakfast in the community room. Performed 1:1 in [facility] room. Pt denies SI/HI and AVH. Pt observed coloring in the community room while watching TV. Staff allowed pt to wear cow costume today for Halloween and pt very appreciative. Pt attended group today. Pt tried to shush a peer that was internally responding during group, peer began yelling at her and pt made remarks such as you have an ugly aura. Peer left room yelling and pt remained calm. Pt took a shower today. Observed interacting with her roommate. Given PRN Clonidine 2X today with good effect. Pt decorated her face with toothpaste after her shower. Observed pt talking loudly on the phone in the afternoon. No s/s of distress. Pt was calm and cooperative with staff today. Plan : Pt. requires interruption of current crisis, medication adjustments, and a safe and supportive environment. Addendum: 08/24/23 at 1816 by Nova Woo RN At the end of the shift pt began yelling on the phone in her room. When approached she yelled at staff. Security called. Pt began pacing the hallway yelling about not being able to contact her boyfriend and telling staff they couldn't handle her. Pt began yelling "I'm a woman walking". notified. Addendum: 08/24/23 at 1834 by Nova Woo RN Given 10mg Zyprexa PO
[2023-08-24] MEDS ORDERED: OLANZapine 5mg rapidly disint. tablet PO ONE (18:20)
[2023-08-24 19:30] VITALS: BP 121/87; PULSE 116; RESP 18; TEMP 98.2; O2SAT 98
[2023-08-24] MEDS: olanzapine 10mg tablet PO SCH (20:05)
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
[2023-08-25 07:00] VITALS: RESP 18; O2SAT 98
[2023-08-25] MEDS: cloNIDine 0.1 mg tablet PO PRN ×2 (07:14→22:23)
[2023-08-25] MEDS: nicotine 21mg patch - 24 hr TD SCH ×2 (07:14→07:24)
[2023-08-25] MEDS: OLANZAPINE 5 MG TABLET PO SCH (07:14)
[2023-08-25 08:25] VITALS: BP 130/75; PULSE 120; RESP 14; TEMP 98.2; O2SAT 96
--- NOTE | 2023-08-25 15:53 | NUR ---
Nursing Progress Note: Teresa Problem: Pt. was transferred from the ER to [facility] on 5150 for Grave Disability. Pt presented to the ED with signs and symptoms of psychosis including disorganized thoughts and feeling that she lost herself. Pt is unable to report a viable plan for food, clothing and half-way. She is observed responding to internal stimuli speaking and making bizarre or delusional statements. Intervention: Maintained a safe and supportive environment, attempted to orient to reality, provided clear and simple instructions, monitored behaviors and provided intervention as needed, provided active listening and positive encouragement, and maintained Q 15min safety checks. Response: Received reported from NOC shift. Pt in room awake. Pt pleasant and cooperative. Pt compliant with meds, no issues noted. Pt having issues with Simeon another peer since this AM. Stating Simeon has been staring at her, cussing and calling him names. Pt participated in groups and snack in the community room. Pt interacting with peer in community room throughout the shift. Pt denies SI, HI, and VH. Pt endorse AH, stating Pt stated her internal voice talking about life and moving to [place] and pursing her career. Pt reported voices gives her positive affirmation. 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 Pt showered today. Pt was in community room with other peers having a conversation. Pt making delusional statement, is related to Gabrielle. Pt stated Hitler DNA is in her blood. Pt stated she will be discharging to [facility]. Hospitalist note suggested considered hyperthyroidism with TSH being low at 0.21. Physician will follow-up. Will continue to monitor. Plan: Pt. requires interruption of current crisis, medication adjustments, and a safe and supportive environment.
[2023-08-25] MEDS: NICOTINE POLACRILEX 2 MG LOZENGE BC PRN (19:26)
[2023-08-25 20:00] VITALS: BP 115/71; PULSE 118; RESP 16; TEMP 98.1; O2SAT 96
[2023-08-25] MEDS: olanzapine 10mg tablet PO SCH (20:24)
[2023-08-25] MEDS: traZODone 50mg tablet PO ONE ×2 (22:45→22:50)
--- NOTE | 2023-08-26 00:19 | NUR ---
Nursing Progress Note: Teresa Problem: Pt. was transferred from the ER to [facility] on 5150 for Grave Disability. Pt presented to the ED with signs and symptoms of psychosis including disorganized thoughts and feeling that she lost herself. Pt is unable to report a viable plan for food, clothing and intermediate. She is observed responding to internal stimuli speaking and making bizarre or delusional statements. Intervention: Maintained a safe and supportive environment, attempted to orient to reality, provided clear and simple instructions, monitored behaviors and provided intervention as needed, provided active listening and positive encouragement, and maintained Q 15min safety checks. Response: Received pt in community room with peers working on a puzzle. Pt smiling and laughing and seems calm and content. Pt states she had a good day, participated in snacks and took all HS medications without issue. Pt continued to work on [employer] until bedtime. Pt denies MH symptoms. Around 2230 pt came to this RN and stated she was having trouble sleeping and was slightly anxious. 0.1MG clonidine given. Pt lying in bed reading a book. Will continue to monitor. Pt is currently sleeping. Plan: Pt. requires interruption of current crisis, medication adjustments, and a safe and supportive environment.
[2023-08-26] MEDS: NICOTINE POLACRILEX 2 MG LOZENGE BC PRN ×4 (06:45→19:59)
[2023-08-26 07:00] VITALS: RESP 16; O2SAT 98
[2023-08-26] MEDS: OLANZAPINE 5 MG TABLET PO SCH (07:20)
[2023-08-26] MEDS: nicotine 21mg patch - 24 hr TD SCH ×2 (07:20→07:27)
[2023-08-26 07:36] VITALS: BP 117/74; PULSE 90; RESP 16; TEMP 97.9; O2SAT 98
[2023-08-26] MEDS: cloNIDine 0.1 mg tablet PO PRN (12:53)
[2023-08-26] MEDS ORDERED: ibuprofen 200mg tablet PO PRN (14:00)
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
[2023-08-26 19:00] VITALS: RESP 16; O2SAT 100
[2023-08-26 20:00] VITALS: BP 111/79; PULSE 125; RESP 16; TEMP 99.2; O2SAT 100
[2023-08-26] MEDS: olanzapine 10mg tablet PO SCH (20:36)
[2023-08-26 21:00] VITALS: PULSE 96; RESP 14; O2SAT 100
--- NOTE | 2023-08-26 23:31 | NUR ---
Nursing Progress Note: Problem: Pt. was transferred from the ER to [facility] on 5150 for Grave Disability. Pt presented to the ED with signs and symptoms of psychosis including disorganized thoughts and feeling that she lost herself. Pt is unable to report a viable plan for food, clothing and fdc. She is observed responding to internal stimuli speaking and making bizarre or delusional statements. Intervention: Maintained a safe and supportive environment, attempted to orient to reality, provided clear and simple instructions, monitored behaviors and provided intervention as needed, provided active listening and positive encouragement, and maintained Q 15min safety checks. Response: This patient is observed in the Community room following shift change. 1:1 Interview in the community room. The patient is cooperative and polite. She denies S/I, H/I, or any hallucinations. The patient describes delusional thought, she states her boyfriend is a project scientist, she plans to him, they will live in [place], and go to [place] in 5 years. The patient is medication compliant. Patient socializes well with other patients, she watches television and plays cards. Plan: Pt. requires interruption of current crisis, medication adjustments, and a safe and supportive environment.
[2023-08-27] MEDS: NICOTINE POLACRILEX 2 MG LOZENGE BC PRN ×4 (06:23→19:35)
[2023-08-27 07:00] VITALS: RESP 16; O2SAT 98
[2023-08-27 08:00] VITALS: BP 143/89; PULSE 82; RESP 16; TEMP 99.3; O2SAT 99
[2023-08-27] MEDS: nicotine 21mg patch - 24 hr TD SCH (08:29)
[2023-08-27] MEDS: OLANZAPINE 5 MG TABLET PO SCH ×2 (08:29→20:54)
--- NOTE | 2023-08-27 11:41 | NUR ---
Reassessment: Pt continues eating well, documented with mostly 100% PO intake of meals meeting estimated nutrient needs. LBM 08/26 per EMR. No nutrition intervention warranted at this time. Will continue to follow and make recommendations as appropriate. Recommendations: 1) Continue regular diet 2) Bowel care PRN 3) Weekly scaled weights Addendum: 08/27/23 at [address] Amended: Links added.
--- NOTE | 2023-08-27 16:53 | NUR ---
Nursing Progress Note: Teresa Problem : Pt. was transferred from the ER to [facility] on 5150 for Grave Disability. Pt presented to the ED with signs and symptoms of psychosis including disorganized thoughts and feeling that she lost herself. Pt is unable to report a viable plan for food, clothing and fpc. She is observed responding to internal stimuli speaking and making non-sensical or delusional statements. Interventions : Maintained a safe and supportive environment, attempted to orient to reality, provided clear and simple instructions, monitored behaviors and provided intervention as needed, provided active listening and positive encouragement, and maintained Q 15min safety checks. Response : Pt. received asleep and awoke for breakfast. She took her medications without hesitation, denies SI, HI, AH, VH and plans to DC to the [facility]. Pt. received two family visitors today, and later presented as irritable and short tempered with this technical document writer. Pt. was found to have scattered items and stacked groupings of items all over her room, which she reports is art Pt. was advised her art which contains used tea bags needed to be discarded. She spent most of the shift out of her room and socialized with cohorts and played card games. Pt. presents as delusional and perseverated on my kj and he works for [employer] She appears with improved hygiene, well groomed, and wears unit scrubs. Plan : Pt. requires interruption of current crisis, medication adjustments, and a safe and supportive environment.
[2023-08-27 19:21] VITALS: RESP 16; O2SAT 99
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
[2023-08-27 20:00] VITALS: BP 141/88; PULSE 82; RESP 16; TEMP 98.9; O2SAT 99
[2023-08-27] MEDS ORDERED: traZODone 50mg tablet PO ONE (22:40)
[2023-08-28] MEDS: NICOTINE POLACRILEX 2 MG LOZENGE BC PRN ×3 (06:04→20:09)
[2023-08-28 07:00] VITALS: RESP 16; O2SAT 98
[2023-08-28] MEDS: OLANZAPINE 5 MG TABLET PO SCH ×2 (07:31→20:08)
[2023-08-28] MEDS: nicotine 21mg patch - 24 hr TD SCH (07:34)
[2023-08-28 08:00] VITALS: BP 117/80; PULSE 88; RESP 16; TEMP 99.1; O2SAT 99
--- NOTE | 2023-08-28 16:07 | NUR ---
Nursing Progress Note: Teresa Problem : Pt. was transferred from the ER to [facility] on 5150 for Grave Disability. Pt presented to the ED with signs and symptoms of psychosis including disorganized thoughts and feeling that she lost herself. Pt is unable to report a viable plan for food, clothing and mcc. She is observed responding to internal stimuli speaking and making non-sensical or delusional statements. Interventions : Maintained a safe and supportive environment, attempted to orient to reality, provided clear and simple instructions, monitored behaviors and provided intervention as needed, provided active listening and positive encouragement, and maintained Q 15min safety checks. Response : Pt. received asleep and awoke to take her medications without hesitation. Pt. denies SI, HI, AH, VH and continues to endorse her DC plan of the [facility]. She presented upbeat and showered before breakfast. She socialized and ate her meals in the community room with cohorts. Pt. received family visitors today. She wasnt observe responding to IS and made no delusional statements. She is cooperative, pleasant, has good hygiene. Plan : Pt. requires interruption of current crisis, medication adjustments, and a safe and supportive environment.
[2023-08-28 19:00] VITALS: BP 121/78; PULSE 119; RESP 18; TEMP 98.5; O2SAT 95
[2023-08-28] MEDS: cloNIDine 0.1 mg tablet PO PRN (20:09)
[2023-08-28] MEDS: traZODone 150mg tablet PO SCH (20:10)
--- NOTE | 2023-08-28 23:46 | NUR ---
Nursing Progress Note: Problem : Pt. was transferred from the ER to [facility] on 5150 for Grave Disability. Pt presented to the ED with signs and symptoms of psychosis including disorganized thoughts and feeling that she lost herself. Pt is unable to report a viable plan for food, clothing and prison. She is observed responding to internal stimuli speaking and making non-sensical or delusional statements. Interventions : Maintained a safe and supportive environment, attempted to orient to reality, provided clear and simple instructions, monitored behaviors and provided intervention as needed, provided active listening and positive encouragement, and maintained Q 15min safety checks. Response: The patient was out of her room socializing with others following shift change. She watches television and plays cards. 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 At times she dances around like a boxer. The patient identifies as being a protector for her sisters. She presents as less delusional this shift. She was medication compliant. Plan: Pt. requires interruption of current crisis, medication adjustments, and a safe and supportive environment.
[2023-08-29] MEDS: NICOTINE POLACRILEX 2 MG LOZENGE BC PRN ×4 (05:43→15:49)
[2023-08-29] MEDS: cloNIDine 0.1 mg tablet PO PRN (05:49)
[2023-08-29 07:00] VITALS: RESP 16; O2SAT 97
[2023-08-29] MEDS: OLANZAPINE 5 MG TABLET PO SCH ×2 (07:16→23:40)
[2023-08-29] MEDS: nicotine 21mg patch - 24 hr TD SCH (07:58)
[2023-08-29 08:00] VITALS: BP 100/67; PULSE 128; RESP 16; TEMP 98.2; O2SAT 97
[2023-08-29 15:13] VITALS: BP 116/79; PULSE 135; O2SAT 97
[2023-08-29] MEDS ORDERED: LORazepam 1 MG tablet PO ONE (15:15)
--- NOTE | 2023-08-29 16:03 | NUR ---
Nursing Progress Note: Teresa Problem : Pt. was transferred from the ER to [facility] on 5150 for Grave Disability. Pt presented to the ED with signs and symptoms of psychosis including disorganized thoughts and feeling that she lost herself. Pt is unable to report a viable plan for food, clothing and alf. She is observed responding to internal stimuli speaking and making non-sensical or delusional statements. Interventions : Maintained a safe and supportive environment, attempted to orient to reality, provided clear and simple instructions, monitored behaviors and provided intervention as needed, provided active listening and positive encouragement, and maintained Q 15min safety checks. Response: Received pt awake in hallway walking arm in arm with another pt. Pt took morning medications cooperatively, ate breakfast in the community room and took a shower. Pt agitated and verbally threatening other pts if they come too close to her or speak too loudly in the hallway. Pt very labile, going from calm and cooperative to yelling. Pt had a visit from her mother and sister today. During the visit pt became agitated, punching into the air, and yelling You were late! You made me feel abandoned! Pt calmed herself and had a nice visit with her family. Performed 1:1 in hallway. Pt denies SI/HI and AVH. Pt ate lunch in the community room and then took a nap. Observed interacting with peers and staff in the hallway. Pt states shes ready to go to the [facility]. During afternoon snack pt got very upset with a peer for standing in the doorway and began yelling demeaning statements at him such as telling him he peed his pants. Given a one time dose of Ativan 1mg, with good effect. Pt observed playing card games in the community room. Plan : Pt. requires interruption of current crisis, medication adjustments, and a safe and supportive environment.
[2023-08-29 19:00] VITALS: RESP 16; O2SAT 99
[2023-08-29 20:00] VITALS: BP 117/69; PULSE 99; RESP 16; TEMP 98.2
[2023-08-29] MEDS: traZODone 150mg tablet PO SCH (23:40)
--- NOTE | 2023-08-30 02:02 | NUR ---
Nursing Progress Note: Problem: Pt. was transferred from the ER to [facility] on 5150 for Grave Disability. Pt presented to the ED with signs and symptoms of psychosis including disorganized thoughts and feeling that she lost herself. Pt is unable to report a viable plan for food, clothing and usp. She is observed responding to internal stimuli speaking and making non-sensical or delusional statements. Interventions: Maintained a safe and supportive environment, attempted to orient to reality, provided clear and simple instructions, monitored behaviors and provided intervention as needed, provided active listening and positive encouragement, and maintained Q 15min safety checks. Response: Pt in room sleeping at med pass unable to wake pt enough to take medications. VS WNL. Approached pt two other times to attempt med administration. Last time pt sat up but shook her head no to taking meds. Laid down and went back to sleep. Pt came out of room at 2340 asking for headphones took HS meds at that time. Plan: Pt. requires interruption of current crisis, medication adjustments, and a safe and supportive environment.
[2023-08-30] MEDS: NICOTINE POLACRILEX 2 MG LOZENGE BC PRN ×4 (04:09→21:01)
[2023-08-30 07:00] VITALS: RESP 14; O2SAT 99
[2023-08-30] MEDS: cloNIDine 0.1 mg tablet PO PRN ×2 (07:42→18:51)
[2023-08-30] MEDS: OLANZAPINE 5 MG TABLET PO SCH ×2 (07:42→20:47)
[2023-08-30] MEDS: nicotine 21mg patch - 24 hr TD SCH (07:48)
[2023-08-30 08:00] VITALS: BP 121/86; PULSE 136; RESP 14; TEMP 98; O2SAT 99
--- NOTE | 2023-08-30 14:00 | NUR ---
Nursing Progress Note: Problem : Pt. was transferred from the ER to [facility] on 5150 for Grave Disability. Pt presented to the ED with signs and symptoms of psychosis including disorganized thoughts and feeling that she lost herself. Pt is unable to report a viable plan for food, clothing and half-way. She is observed responding to internal stimuli speaking and making non-sensical or delusional statements. Interventions : 1:1 assessment, therapeutic conversation, active listening, medication administration/education/monitoring, behavior monitoring and intervention as needed; provided distraction, redirection, limit setting, positive reinforcement, and maintained Q15 minute safety checks. Response : Pt was up before breakfast and approached the nurses to inquire who her nurse was today. Pt socialized for awhile with staff. She stated that it's hard to remember everyone's names. Pt was cooperative with her medications. Pt still had her nicotine patch on from yesterday. Pt stated, "oh they forgot to take it off, that's why I had crazy dreams." Pt's HR was 136 and she appeared somewhat restless and anxious. PRN Clonidine 0.1 mg given at 0742 with good effect. Pt reported that she was going to try to be good today and that she should be getting out of here in the next couple of days. Pt showered and removed her nicotine patch, she handed it to this nurse at 1115 stating that she didn't want it anymore that she would rather just use lozenges. Pt became a little loud at times. She is easily agitated by loud, disorganized peers. However, her agitation and verbal outbursts were brief and she was able to calm herself without the need for staff intervention. Pt napped for awhile before lunch. She did get up after everyone else had eaten and ate her food. Plan : Pt. requires interruption of current crisis, medication adjustments, and a safe and supportive environment.
[2023-08-30] MEDS ORDERED: CLON0.1T2 PO (17:20)
[2023-08-30] MEDS ORDERED: TRAZ150T78 PO (17:20)
[2023-08-30] MEDS ORDERED: NICO-687 TD (17:20)
[2023-08-30] MEDS ORDERED: NICO-907 BC (17:20)
[2023-08-30] MEDS ORDERED: OLAN15TA20 PO (17:21)
[2023-08-30] MEDS ORDERED: OLAN10TA73 PO (17:21)
[2023-08-30 19:00] VITALS: BP 111/68; PULSE 93; RESP 16; TEMP 98.8; O2SAT 100
[2023-08-30] MEDS: traZODone 150mg tablet PO SCH (20:48)
--- NOTE | 2023-08-31 05:06 | NUR ---
Nursing Progress Note: Problem : Pt. was transferred from the ER to [facility] on 5150 for Grave Disability. Pt presented to the ED with signs and symptoms of psychosis including disorganized thoughts and feeling that she lost herself. Pt is unable to report a viable plan for food, clothing and alf. She is observed responding to internal stimuli speaking and making non-sensical or delusional statements. Interventions : 1:1 assessment, therapeutic conversation, active listening, medication administration/education/monitoring, behavior monitoring and intervention as needed; provided distraction, redirection, limit setting, positive reinforcement, and maintained Q15 minute safety checks. Response : Received pt. in day room where she was sitting with other peers. Pt reported she was feeling anxious. Inorganic Chemist administrated Catapres 0.1mg. Pt also received a nicotine lozenge. Fair relief from Catapres reported. Pt ate snack and is interacting well with peers and staff. Pt is medication compliant, she took off her nicotine patch earlier in the day. Requesting and nicotine lozenge and reports coughing and having a scratchy throat. Wants a throat lozenge. called for an order and received one. Pt given throat lozenge. Pt stated she will be leaving tomorrow or the next day. No discharge date noted in reports as of yet. Monitor for safety. Plan : Pt. requires interruption of current crisis, medication adjustments, and a safe and supportive environment.
[2023-08-31] MEDS: NICOTINE POLACRILEX 2 MG LOZENGE BC PRN ×4 (05:59→19:42)
[2023-08-31] MEDS: HALLS - SOOTHE MENTHOL 1.8 MG cough drop LOZENGE MM PRN ×2 (06:02→19:42)
[2023-08-31 07:00] VITALS: RESP 18; O2SAT 98
[2023-08-31 07:23] VITALS: BP 106/69; PULSE 140; RESP 18; TEMP 97.5; O2SAT 98
[2023-08-31] MEDS: OLANZAPINE 5 MG TABLET PO SCH ×2 (07:42→20:32)
[2023-08-31] MEDS: cloNIDine 0.1 mg tablet PO PRN ×2 (07:42→20:59)
[2023-08-31] MEDS: nicotine 21mg patch - 24 hr TD SCH (07:46)
--- NOTE | 2023-08-31 13:58 | NUR ---
Nursing Progress Note: Problem : Pt. was transferred from the ER to [facility] on 5150 for Grave Disability. Pt presented to the ED with signs and symptoms of psychosis including disorganized thoughts and feeling that she lost herself. Pt is unable to report a viable plan for food, clothing and senior care. She is observed responding to internal stimuli speaking and making non-sensical or delusional statements. Interventions : 1:1 assessment, therapeutic conversation, active listening, medication administration/education/monitoring, behavior monitoring and intervention as needed; provided distraction, redirection, positive reinforcement, and maintained Q15 minute safety checks. Response : Pt was up before breakfast and in good spirits. Pt socialized with staff and peers. Pt played board games with peers in the community room. Pt had no episodes of agitation or verbal outbursts. Pt attended group. Pt denied depression, SI/HI/AH/VH. Pt is looking forward to pending discharge. Pt had a chest X-ray done today to rule out TB, results pending. Plan : Pt is stable, plan is for pt to discharge to the [facility] tomorrow.
[2023-08-31 19:00] VITALS: RESP 16; O2SAT 98
[2023-08-31 19:13] VITALS: BP 126/82; PULSE 127; RESP 16; TEMP 99; O2SAT 98
[2023-08-31] MEDS: traZODone 150mg tablet PO SCH (20:32)
[2023-08-31] MEDS ORDERED: traZODone 50mg tablet PO ONE (21:55)
--- NOTE | 2023-08-31 23:29 | NUR ---
Nursing Progress Note: Problem : Pt. was transferred from the ER to [facility] on 5150 for Grave Disability. Pt presented to the ED with signs and symptoms of psychosis including disorganized thoughts and feeling that she lost herself. Pt is unable to report a viable plan for food, clothing and assisted. She is observed responding to internal stimuli speaking and making non-sensical or delusional statements. Interventions : 1:1 assessment, therapeutic conversation, active listening, medication administration/education/monitoring, behavior monitoring and intervention as needed; provided distraction, redirection, positive reinforcement, and maintained Q15 minute safety checks. Response: Pt is singing and dancing in the hallway with the headphones on. Pt is pleasant and cooperative with care. Pt denies SI/HI/AVH. Denies depression and anxiety. Pt is medication compliant and took a halls and a nicotine lozenge. Pt is euphoric bouncing around the unit. Im getting discharged tomorrow and staying in [place] for the next 30 days. Im then going to my boyfriends and my mom cant stop me. She tried when I was 16 from going to [place]. [place]. It has great music too. All over the place. DARRIN done and there is no evidence of TB. Pt is medication compliant. Pt very labile, she and another peer were in a verbal confrontation and the other peer left crying. Manager Intelligence asked what happened and she said, I dont want to be her friend. I dont like people that cant control her emotions. Clonidine 0.1mg given to help with her mood. Pt took a second 100mg of Trazodone for sleep. Monitor for safety. Plan : Pt is stable, plan is for pt to discharge to the [facility] tomorrow.
[2023-09-01] MEDS: NICOTINE POLACRILEX 2 MG LOZENGE BC PRN ×2 (06:04→08:42)
[2023-09-01 07:00] VITALS: RESP 16; O2SAT 97
[2023-09-01 07:17] VITALS: BP 134/77; PULSE 110; RESP 16; TEMP 98.9; O2SAT 97
[2023-09-01] MEDS: nicotine 21mg patch - 24 hr TD SCH (07:17)
[2023-09-01] MEDS: OLANZAPINE 5 MG TABLET PO SCH (07:17)
[2023-09-01] MEDS: HALLS - SOOTHE MENTHOL 1.8 MG cough drop LOZENGE MM PRN (08:42)
--- NOTE | 2023-09-01 10:25 | NUR ---
Discharge Note: Pt discharged to the [facility], picked up by [facility] driver education instructor. Pt discharged with all belongings and valuables. RN went over discharge paperwork with patient including fire arms restriction, emergency phone numbers, and discharge medications along with a follow up plan. Pt signed all paperwork. Pt denies SI/HI, and AVH. Pt is AXO X4, and in no apparent distress.
== END 2023-09-01 10:20 | DRG 751 ==
LOC: ER 22:15 → ADULT MH 08-09 13:00
PROVIDERS: ADMIT Psychiatry & Neurology Psychiatry; ATTEND Psychiatry & Neurology Psychiatry
DX: F23 Brief psychotic disorder (principal); F25.0 Schizoaffective disorder, bipolar type; F15.159 Other stimulant abuse with stimulant-induced psychotic disorder, unspecified; B96.1 Klebsiella pneumoniae [K. pneumoniae] as the cause of diseases classified elsewhere; D64.9 Anemia, unspecified; N39.0 Urinary tract infection, site not specified; F39 Unspecified mood [affective] disorder; F12.10 Cannabis abuse, uncomplicated; E87.6 Hypokalemia; Z20.822 Contact with and (suspected) exposure to COVID-19; F17.200 Nicotine dependence, unspecified, uncomplicated; Z59.00 Homelessness unspecified; Z81.8 Family history of other mental and behavioral disorders; Z83.49 Family history of other endocrine, nutritional and metabolic diseases; Z88.0 Allergy status to penicillin; Z91.018 Allergy to other foods
CPT/HCPCS: 36415; 71045; 80053; 80061; 80305; 80320; 81001; 81003; 81025; 83036; 83735; 84132; 84439; 84443; 85025; 87077; 87081; 87088; 87186; 87811; 99285; A6250; J1200; J2060; J3490

== ENCOUNTER 2024-01-16 12:21 | Emergency (ER) | payer MEDICAID ==
[~2024-01-16] VITALS: Ht 165.1 cm; Wt 59.1 kg
[~2024-01-16 12:21] MED LIST changes: -ARIP400S3 IM; -BROM5CAP3 PO; +CLON0.1T2 PO; -LITH300C PO; +NICO-687 TD; +NICO-907 BC; +NO HOME MEDS; +OLAN10TA73 PO; +OLAN15TA20 PO; -OLAN20TA34 PO; +TRAZ150T78 PO
[2024-01-16 12:28] VITALS: TEMP 97.6
[2024-01-16 13:30] LABS: URINE HCG NEGATIVE (NEG)
[2024-01-16 13:36] LABS: BASOPHILS # (AUTO) 0.1 X10'3 (0-0.2); BASOPHILS % (AUTO) 0.8 % (0-1); EOSINOPHILS # (AUTO) 0.3 X10'3 (0-0.9); EOSINOPHILS % (AUTO) 4.7 % (0-6); HEMATOCRIT 38.4 % (35.0-45.0); HEMOGLOBIN 12.8 g/dl (12.0-16.0); LYMPHOCYTES % (AUTO) 30.5 % (21-51); MEAN CORPUSCULAR HEMOGLOBIN 31.5 PG (27.0-31.0); MEAN CORPUSCULAR HGB CONC 33.4 g/dL (33.0-36.5); MEAN CORPUSCULAR VOLUME 94.3 FL (78-98); MEAN PLATELET VOLUME 8.6 FL (7.4-10.4); MONOCYTES # (AUTO) 0.5 X10'3 (0-0.9); MONOCYTES % (AUTO) 8.4 % (2-12); NEUTROPHILS # (AUTO) 3.6 X10'3 (1.8-7.7); NEUTROPHILS % (AUTO) 55.6 % (42-75); PLATELET COUNT 293 X10'3 (140-440); RED BLOOD COUNT 4.07 X10'6 (4.20-5.60); RED CELL DISTRIBUTION WIDTH 13.4 % (11.5-14.5); WHITE BLOOD COUNT 6.5 X10'3 (4.5-11.0)
[2024-01-16 13:37] LABS: ALBUMIN 3.7 G/DL (3.4-5.0); ANION GAP 6 (8-16); BLOOD UREA NITROGEN 9 MG/DL (7-18); CALCIUM 8.6 MG/DL (8.5-10.1); CHLORIDE 108 MMOL/L (99-107); CREATININE 0.75 MG/DL (0.40-0.90); ETHANOL < 10 MG/DL (<10); GLUCOSE 87 MG/DL (70-104); POTASSIUM 3.9 MMOL/L (3.5-5.1); SODIUM 143 MMOL/L (135-145); eCRCL 108 ML/MIN; eGFR > 90 ML/MIN
[2024-01-16 13:43] LABS: URINE AMPHETAMINE SCREEN NEGATIVE (Neg); URINE BARBITUATE SCREEN NEGATIVE (Neg); URINE BENZODIAZEPINES SCREEN NEGATIVE (Neg); URINE CANNABINOID SCREEN NEGATIVE (Neg); URINE COCAINE SCREEN NEGATIVE (Neg); URINE METHADONE SCREEN NEGATIVE (Neg); URINE OPIATE SCREEN NEGATIVE (Neg); URINE PHENCYCLIDINE SCREEN NEGATIVE (Neg)
[2024-01-16 13:56] LABS: BILIRUBIN,URINE NEGATIVE (Neg); COLOR,URINE YELLOW (Yellow); GLUCOSE, URINE NEGATIVE (Neg); KETONES,URINE NEGATIVE (Neg); LEUKOCYTE ESTERASE ,URINE NEGATIVE (Neg); NITRITES, URINE NEGATIVE (Neg); OCCULT BLOOD,URINE NEGATIVE (Neg); PROTEIN,URINE NEGATIVE (Neg); UROBILINOGEN,URINE 0.2 E.U/dL (0.2-1.0)
[2024-01-16 14:01] LABS: CLARITY,URINE SLIGHTLY CLOUDY (Clear); UA COLLECTION TYPE CLN CATCH MIDSTREAM
[2024-01-16 14:04] LABS: SQUAMOUS EPITHELIAL CELL,UR MODERATE /LPF (FEW)
[2024-01-16 14:05] LABS: AMORPHOUS PHOSPHATES 2+
[2024-01-16 14:06] LABS: BACTERIA,URINE FEW /HPF (Neg); RBC,URINE NONE SEEN /HPF (0-2); WBC,URINE 0-4 /HPF (0-4)
[2024-01-16 14:07] VITALS: BP 95/68; PULSE 87; RESP 17; O2SAT 100
== END 2024-01-16 19:54 | disposition home or self-care (01) ==
LOC: ER 12:21
DX: R45.851 Suicidal ideations (principal); Z20.822 Contact with and (suspected) exposure to COVID-19; F15.90 Other stimulant use, unspecified, uncomplicated; Z56.0 Unemployment, unspecified; Z88.1 Allergy status to other antibiotic agents; Z79.899 Other long term (current) drug therapy
CPT/HCPCS: 36415; 80048; 80305; 80320; 81001; 81025; 85025; 87811; 99283; 99285